=== PATIENT | female | born 1935 | race Caucasian/White ===

== ENCOUNTER 2016-09-15 05:52 | Inpatient (IN) | payer MEDICARE, OTHER ==
[2016-09-15 06:26] LABS: Basophils # (A) 0.1 k/uL (0-0.2); Basophils % (A) 1 %; CH 27.1; CHCM 32.6; Eosinophils # (A) 0.8 k/uL (0-0.7); Eosinophils % (A) 9 %; HCT 33.8 % (34.0-46.0); HDW 2.94; Luc # (Auto) 0.23; Luc % (Auto) 3; Lymphocytes # (A) 1.8 k/uL (1.0-4.8); Lymphocytes % (A) 20 %; MCHC 32.5 g/dL (31.0-37.0); MCV 83.3 fL (80.0-100.0); Mean Platelet Volume 7.3; Monocytes # (A) 0.5 k/uL (0-1.0); Monocytes % (A) 5 %; Neutrophils # (A) 5.4 k/uL (1.3-7.7); Neutrophils % (A) 62 %; RBC 4.06 m/uL (3.80-5.40); RDW 13.6 % (11.5-15.5); WBC 8.7 k/uL (3.8-10.6); WBC (Perox) 8.22
--- NOTE | 2016-09-15 06:28 | ED ---
SOB HPI - General Chief Complaint: Shortness of Breath Stated Complaint: CHELSEA Time Seen by Provider: 09/15/16 06:02 Source: EMS Mode of arrival: EMS Limitations: no limitations - History of Present Illness Initial Comments: This patient is an 81-year-old woman presenting with shortness of breath that is been getting worse for 3-4 days. The patient states she has history of COPD. She states that she had been out of her respiratory medications until yesterday when they arrived. She states that this feels similar to previous COPD episodes. She also has cough with occasional clear sputum. She denies fever or chills. She denies chest pain. MD Complaint: shortness of breath Onset/Timin -: days(s) Severity: moderate Consistency: constant Improves With: nothing Worsens With: lying flat Known History Of: COPD Treatments Prior to Arrival: oxygen - Related Data Home Medications Medication Instructions Recorded Confirmed Aspirin 81 mg PO DAILY 08/06/13 09/15/16 Furosemide [Lasix] 40 mg PO DAILY 08/06/13 09/15/16 Levalbuterol Hfa Inhaler [Xopenex 2 puff INHALATION QID PRN 08/06/13 09/15/16 Hfa Inhaler] Lisinopril [Prinivil] 10 mg PO DAILY 08/06/13 09/15/16 Nitroglycerin Sl Tabs [Nitrostat] 0.4 mg SL DIRECTED PRN 08/06/13 09/15/16 Omeprazole [PriLOSEC] 20 mg PO DAILY 08/06/13 09/15/16 Albuterol Nebulized [Ventolin 2.5 mg INHALATION RT-QID 09/15/16 09/15/16 Nebulized] Atorvastatin [Lipitor] 20 mg PO DAILY 09/15/16 09/15/16 Calcium Carbonate [Calcium] 600 mg PO DAILY 09/15/16 09/15/16 Allergies Allergy/AdvReac Type Severity Reaction Status Date / Time codeine Allergy Unknown Verified 09/15/16 07:38 Review of Systems ROS Statement: Those systems with pertinent positive or pertinent negative responses have been documented in the HPI. ROS Other: All systems not noted in ROS Statement are negative. Constitutional: Denies: fever, chills, weakness Respiratory: Reports: cough, dyspnea, wheezes. Denies: hemoptysis Cardiovascular: Reports: orthopnea. Denies: chest pain, palpitations, edema Gastrointestinal: Denies: abdominal pain, vomiting, diarrhea Genitourinary: Denies: dysuria, hematuria Musculoskeletal: Denies: back pain Skin: Denies: rash Neurological: Denies: headache, weakness, numbness Past Medical History Past Medical History: Cancer, Heart Failure, COPD, GERD/Reflux, Hypertension, Osteoarthritis (OA) Additional Past Medical History / Comment(s): SPINAL STENOSIS,OSTEOPOROSIS, UTI' S, GOUT History of Any Multi-Drug Resistant Organisms: None Reported Past Surgical History: Appendectomy, Cholecystectomy, Coronary Bypass/CABG, Heart Catheterization With Stent Additional Past Surgical History / Comment(s): 03/19/03 STENTS TO MID CIRC, DISTALL TO 1ST, PROX CIRC,, PROX RCA, DISTAL RCA. Past Anesthesia/Blood Transfusion Reactions: No Reported Reaction Date of Last Stent Placement:: 2004 Past Psychological History: Anxiety, Depression Smoking Status: Former smoker Past Alcohol Use History: None Reported Past Drug Use History: None Reported General Exam Limitations: no limitations General appearance: alert, in distress, obese Head exam: Present: atraumatic, normocephalic Eye exam: Present: normal appearance Neck exam: Present: normal inspection Respiratory exam: Present: respiratory distress, rales ({). Absent: wheezes, rhonchi, chest wall tenderness, decreased breath sounds, prolonged expiratory Cardiovascular Exam: Present: regular rate, normal rhythm, normal heart sounds. Absent: systolic murmur, diastolic murmur, rubs, gallop GI/Abdominal exam: Present: soft. Absent: distended, tenderness, guarding, rebound, mass Extremities exam: Present: normal inspection, normal capillary refill, pedal edema (Left leg). Absent: calf tenderness Back exam: Present: normal inspection. Absent: CVA tenderness (R), CVA tenderness (L) Neurological exam: Present: alert Skin exam: Present: warm, dry, intact, normal color. Absent: rash Course Vital Signs 09/15/16 09/15/16 09/15/16 05:53 06:55 07:14 Temperature 100.1 F H 98.9 F Pulse Rate 100 77 78 Respiratory 28 H 18 20 Rate Blood Pressure 172/74 109/53 109/53 O2 Sat by Pulse 94 L 100 93 L Oximetry Medical Decision Making - Lab Data Result diagrams: 09/15/16 06:12 09/15/16 06:12 Lab Results 09/15/16 09/15/16 09/15/16 Range/Units 06:12 06:12 06:12 WBC 8.7 (3.8-10.6) k/uL RBC 4.06 (3.80-5.40) m/uL Hgb 11.0 L (11.4-16.0) gm/dL Hct 33.8 L (34.0-46.0) % MCV 83.3 (80.0-100.0) fL MCH 27.0 (25.0-35.0) pg MCHC 32.5 (31.0-37.0) g/dL RDW 13.6 (11.5-15.5) % Plt Count 341 (150-450) k/uL Neutrophils % 62 % Lymphocytes % 20 % Monocytes % 5 % Eosinophils % 9 % Basophils % 1 % Neutrophils # 5.4 (1.3-7.7) k/uL Lymphocytes # 1.8 (1.0-4.8) k/uL Monocytes # 0.5 (0-1.0) k/uL Eosinophils # 0.8 H (0-0.7) k/uL Basophils # 0.1 (0-0.2) k/uL PT (9.0-12.0) sec INR (<1.2) APTT (22.0-30.0) sec D-Dimer (<0.60) mg/L FEU Sodium 137 (137-145) mmol/L Potassium 3.3 L (3.5-5.1) mmol/L Chloride 99 (98-107) mmol/L Carbon Dioxide 28 (22-30) mmol/L Anion Gap 10 mmol/L BUN 19 H (7-17) mg/dL Creatinine 0.98 (0.52-1.04) mg/dL Est GFR (MDRD) Af Amer >60 (>60 ml/min/1.73 sqM) Est GFR (MDRD) Non-Af 54 (>60 ml/min/1.73 sqM) Glucose 126 H (74-99) mg/dL Calcium 9.1 (8.4-10.2) mg/dL Total Bilirubin 0.5 (0.2-1.3) mg/dL AST 27 (14-36) U/L ALT 35 (9-52) U/L Alkaline Phosphatase 44 (38-126) U/L Total Creatine Kinase 39 (30-135) U/L CK-MB (CK-2) 0.9 (0.0-2.4) ng/mL CK-MB (CK-2) Rel Index 2.3 Troponin I <0.012 (0.000-0.034) ng/mL NT-Pro-B Natriuret Pep pg/mL Total Protein 6.0 L (6.3-8.2) g/dL Albumin 3.3 L (3.5-5.0) g/dL 09/15/16 09/15/16 Range/Units 06:12 06:12 WBC (3.8-10.6) k/uL RBC (3.80-5.40) m/uL Hgb (11.4-16.0) gm/dL Hct (34.0-46.0) % MCV (80.0-100.0) fL MCH (25.0-35.0) pg MCHC (31.0-37.0) g/dL RDW (11.5-15.5) % Plt Count (150-450) k/uL Neutrophils % % Lymphocytes % % Monocytes % % Eosinophils % % Basophils % % Neutrophils # (1.3-7.7) k/uL Lymphocytes # (1.0-4.8) k/uL Monocytes # (0-1.0) k/uL Eosinophils # (0-0.7) k/uL Basophils # (0-0.2) k/uL PT 11.3 (9.0-12.0) sec INR 1.1 (<1.2) APTT 22.1 (22.0-30.0) sec D-Dimer 0.93 H (<0.60) mg/L FEU Sodium (137-145) mmol/L Potassium (3.5-5.1) mmol/L Chloride (98-107) mmol/L Carbon Dioxide (22-30) mmol/L Anion Gap mmol/L BUN (7-17) mg/dL Creatinine (0.52-1.04) mg/dL Est GFR (MDRD) Af Amer (>60 ml/min/1.73 sqM) Est GFR (MDRD) Non-Af (>60 ml/min/1.73 sqM) Glucose (74-99) mg/dL Calcium (8.4-10.2) mg/dL Total Bilirubin (0.2-1.3) mg/dL AST (14-36) U/L ALT (9-52) U/L Alkaline Phosphatase (38-126) U/L Total Creatine Kinase (30-135) U/L CK-MB (CK-2) (0.0-2.4) ng/mL CK-MB (CK-2) Rel Index Troponin I (0.000-0.034) ng/mL NT-Pro-B Natriuret Pep 578 pg/mL Total Protein (6.3-8.2) g/dL Albumin (3.5-5.0) g/dL - EKG Data -: EKG Interpreted by Me EKG shows normal: sinus rhythm, axis (Normal), intervals (Normal), QRS complexes (Low voltage QRS complex), ST-T waves (Normal) Rate: normal (Rate approximately 80 bpm) Disposition Clinical Impression: Pneumonia Disposition: ADMITTED IP TO THIS HOSP Condition: Poor Referrals: Cele Winn MD [Primary Care Provider] - 1-2 days
[2016-09-15 06:36] LABS: ALT 35 U/L (9-52); AST 27 U/L (14-36); Alkaline Phosphatase 44 U/L (38-126); Anion Gap 10 mmol/L; Blood Urea Nitrogen 19 mg/dL (7-17); Calcium 9.1 mg/dL (8.4-10.2); Carbon Dioxide 28 mmol/L (22-30); Chloride 99 mmol/L (98-107); Glucose 126 mg/dL (74-99); Non-African American GFR(MDRD) 54 (>60 ml/min/1.73 sqM); Potassium 3.3 mmol/L (3.5-5.1); Sodium 137 mmol/L (137-145); Total Bilirubin 0.5 mg/dL (0.2-1.3)
[2016-09-15 06:44] LABS: INR 1.1 (<1.2); Partial Thromboplastin Time 22.1 sec (22.0-30.0); Prothrombin Time 11.3 sec (9.0-12.0)
[2016-09-15 06:55] LABS: Creatine Kinase 39 U/L (30-135)
--- NOTE | 2016-09-15 07:02 | XR ---
EXAM: XR Chest, 1 View CLINICAL HISTORY: Reason: dyspnea TECHNIQUE: Frontal view of the chest. COMPARISON: None. FINDINGS: Lungs: Opacification of the left lower lung zone is seen raising concern for consolidation. Findings suggestive of COPD. Mild chronic interstitial lung changes likely present. Pleural space: Unremarkable. No pneumothorax. Heart: Patient status post CABG with associated post surgical changes including sternotomy wires seen. The heart appears mildly enlarged. Mediastinum: Mild atherosclerotic vascular calcification likely present in the aortic arch. Bones/joints: Osteopenia suggested. IMPRESSION: 1. Opacification of the left lower lung zone raising concern for left lower lobe consolidation. 2. Findings suggestive of COPD with mild chronic interstitial lung changes. 3. Status post CABG with associated postoperative changes. The heart is mildly enlarged.
[2016-09-15 07:08] LABS: Creatine Kinase MB 0.9 ng/mL (0.0-2.4); Troponin I <0.012 ng/mL (0.000-0.034)
[2016-09-15] MEDS ORDERED: RX INFO: IV CONTRAST WAS GIVEN 1 EACH MISC MISCELLANE PRN (07:21)
[2016-09-15] MEDS ORDERED: PNEUMONIA PROTOCOL UTILIZED 1 EACH MISC PO PRN (08:06)
[2016-09-15] MEDS ORDERED: LEVOFLOXACIN 750MG-D5W PMX 750 MG in DEXTROSE/WATER 1 150ML.BAG IVPB STA (08:06)
--- NOTE | 2016-09-15 08:53 | CT ---
EXAMINATION TYPE: CT chest angio for PE DATE OF EXAM: 09/15/2016 COMPARISON: NONE HISTORY: SOB CT DLP: 528 mGycm Automated exposure control for dose reduction was used. CONTRAST: CT Chest for pulmonary embolism performed with with IV Contrast, patient injected with 80 mL of Visip aque 320. FINDINGS: There is patchy consolidation present bilaterally, worse in the left lower lobe. There is a 1.7 cm masslike area of consolidation along the left lateral chest wall. A second 8 mm spiculated de nsity is noted along the right chest wall. There is some inflammatory change in the right lower lobe. The major bronchi are patent. There is been a midline sternotomy. There is no significant axillary, internal mammary, mediastinal or hilar adenopathy. There is no evidence of pulmonary embolus. The aorta is normal in caliber without evidence of dissection. The heart is mildly prominent. There i s no pleural or pericardial fluid. There is a small hiatal hernia present There is a 2.1 cm exophytic lesion arising from the upper pole of the left kidney. This may represent a cyst. This should BE confirmed with ultrasound. There is hypertrophic spondylosis and degenerative disc disease within the dorsal spine. IMPRESSION: 1. THIS EXAMINATION IS NEGATIVE FOR PULMONARY EMBOLUS. 2. BILATERAL AREAS OF CONSOLIDATION, WORSE IN THE LEFT LOWER LOBE AND LINGULA. 3. MASSLIKE CONSOLIDATION BILATERALLY. FOLLOW-UP TO RESOLUTION WOULD BE RECOMMENDED TO EXCLUDE UNDERL MARCE NEOPLASM. 4. INCOMPLETELY VISUALIZED EXOPHYTIC LESION ARISING FROM THE LEFT KIDNEY. ULTRASOUND OF THE KIDNEYS W OULD BE SUGGESTED. 5. DEGENERATIVE CHANGE WITHIN THE SPINE. 6. SMALL HIATAL HERNIA. 7. MILD CARDIOMEGALY.
[2016-09-15] MEDS: HEPARIN SODIUM,PORCINE 5,000 UNIT/ML 1 ML VIAL SQ SCH ×2 (11:29→20:58)
[2016-09-15] MEDS ORDERED: NITROGLYCERIN SL TABS 0.4 MG TAB SUBLINGUAL PRN (11:55)
[2016-09-15] MEDS ORDERED: ALBUTEROL NEBULIZED 2.5 MG/3 ML INHALATION SCH (12:00)
[2016-09-15] MEDS ORDERED: IPRATROPIUM 0.5 MG/2.5 ML NEBU INHALATION SCH (12:00)
[2016-09-15] MEDS: IPRATROPIUM-ALBUTEROL 3 ML NEB INHALATION SCH ×4 (14:16→23:19)
--- NOTE | 2016-09-15 14:31 | US ---
EXAMINATION TYPE: US kidneys/renal and bladder DATE OF EXAM: 09/15/2016 COMPARISON: NONE CLINICAL HISTORY: renal mass. Renal lesion seen on CT EXAM MEASUREMENTS: Right Kidney: 11.6 x 4.3 x 3.8cm Left Kidney: 10.5 x 4.2 x 3.8cm Right Kidney: cystic area lower pole 1.0 x 0.8 x 0.9cm Left Kidney: hypoechoic area upper pole = 1.7 x 1.8 x 1.7cm Bladder: appears wnl Bilateral Jets seen: yes IMPRESSION: Indeterminate hypoechoic areas within both kidneys. Lesion on the left appears solid in appearance re commend follow-up CT scan.
--- NOTE | 2016-09-15 16:13 | P.HPIM ---
History of Present Illness This patient is an 81-year-old woman presenting with shortness of breath that is been getting worse for 3-4 days, and did have fever cough with sputum production generalized weakness and tiredness and patient is found to have fever and bilateral pneumonia. Patient is admitted and patient antibiotics are being changed to ceftriaxone and azithromycin.. Denied any chest pain did have a syncopal episode, secondary to low blood pressures secondary to pneumonia and sepsis. Although her blood pressure apparently was high during her EMS transport. Review of Systems REVIEW OF SYSTEMS: CONSTITUTIONAL: No fever, no malaise, no fatigue. HEENT: No recent visual problems or hearing problems. Denied any sore throat. CARDIOVASCULAR: No chest pain, orthopnea, PND, no palpitations. PULMONARY: As mentioned in HPI GASTROINTESTINAL: No diarrhea, no nausea, no vomiting, no abdominal pain. Normoactive bowel sounds. NEUROLOGICAL: No headaches, no weakness, no numbness. HEMATOLOGICAL: Denies any bleeding or petechiae. GENITOURINARY: Denies any burning micturition, frequency, or urgency. MUSCULOSKELETAL/RHEUMATOLOGICAL: Denies any joint pain, swelling, or any muscle pain. ENDOCRINE: Denies any polyuria or polydipsia. The rest of the 14-point review of systems is negative. Past Medical History Past Medical History: Coronary Artery Disease (CAD), Cancer, Heart Failure, COPD , GERD/Reflux, Hyperlipidemia, Hypertension, Myocardial Infarction (VT), Osteoarthritis (OA) Additional Past Medical History / Comment(s): PULMONARY HTN, BRONCHITIS, SPINAL STENOSIS,OSTEOPOROSIS, UTI'S, GOUT BILATERAL FEET, PT THINKS SHE HAS A FUNGAL INFECTION TOES L FOOT, R EYE CATARACT, SHINGELLES IN 2013. Last Myocardial Infarction Date:: 2003 History of Any Multi-Drug Resistant Organisms: None Reported Past Surgical History: Appendectomy, Cholecystectomy, Coronary Bypass/CABG, Heart Catheterization With Stent, Tubal Ligation Additional Past Surgical History / Comment(s): PCI WITH STENTS (?TOTAL OF 4), 2003 CABG, SKIN CANCER REMOVALS, D&C, COLONOSCOPIES WITH BENIGN POLYPECTOMIES. Past Anesthesia/Blood Transfusion Reactions: No Reported Reaction Date of Last Stent Placement:: 2003 Smoking Status: Former smoker - Past Family History Mother Family Medical History: Cancer Additional Family Medical History / Comment(s): MOTHER HAD KIDNEY CANCER. SHE OF A RUPTURED BRAIN ANEURYSM AT THE AGE OF 71 YRS. Father History Unknown: Yes Brother(s) Family Medical History: Cancer Additional Family Medical History / Comment(s): THROAT CANCER. Medications and Allergies Home Medications Medication Instructions Recorded Confirmed Type Aspirin 81 mg PO DAILY 08/06/13 09/15/16 History Furosemide [Lasix] 40 mg PO DAILY 08/06/13 09/15/16 History Levalbuterol Hfa Inhaler [Xopenex 2 puff INHALATION QID PRN 08/06/13 09/15/16 History Hfa Inhaler] Lisinopril [Prinivil] 10 mg PO DAILY 08/06/13 09/15/16 History Nitroglycerin Sl Tabs [Nitrostat] 0.4 mg SL DIRECTED PRN 08/06/13 09/15/16 History Omeprazole [PriLOSEC] 20 mg PO DAILY 08/06/13 09/15/16 History Albuterol Nebulized [Ventolin 2.5 mg INHALATION RT-QID 09/15/16 09/15/16 History Nebulized] Atorvastatin [Lipitor] 20 mg PO DAILY 09/15/16 09/15/16 History Calcium Carbonate [Calcium] 600 mg PO DAILY 09/15/16 09/15/16 History Allergies Allergy/AdvReac Type Severity Reaction Status Date / Time codeine Allergy Unknown Verified 09/15/16 07:38 Physical Exam Vitals: Vital Signs Temp Pulse Pulse Resp BP BP Pulse Ox 09/15/16 16:00 78 09/15/16 15:51 74 09/15/16 15:14 16 09/15/16 15:00 97.5 F L 73 16 116/60 96 09/15/16 10:42 97.3 F L 55 L 16 132/58 99 09/15/16 09:49 98.4 F 72 18 125/71 99 09/15/16 08:22 82 18 137/62 97 09/15/16 07:14 98.9 F 78 20 109/53 93 L 09/15/16 06:55 77 18 109/53 100 09/15/16 05:53 100.1 F H 100 28 H 172/74 94 L Intake and Output 09/15/16 09/15/16 09/15/16 06:59 14:59 22:59 Other: # Voids 1 Weight 72.575 kg PHYSICAL EXAMINATION: GENERAL: The patient is alert and oriented x3, not in any acute distress. Well developed, well nourished. HEENT: Pupils are round and equally reacting to light. EOMI. No scleral icterus. No conjunctival pallor. Normocephalic, atraumatic. No pharyngeal erythema. No thyromegaly. CARDIOVASCULAR: S1 and S2 present. No murmurs, rubs, or gallops. PULMONARY: Chest is clear to auscultation, no wheezing or crackles. ABDOMEN: Soft, nontender, nondistended, normoactive bowel sounds. No palpable organomegaly. MUSCULOSKELETAL: No joint swelling or deformity. EXTREMITIES: No cyanosis, clubbing, or pedal edema. NEUROLOGICAL: Gross neurological examination did not reveal any focal deficits. SKIN: No rashes. Results CBC & Chem 7: 09/15/16 06:12 09/15/16 06:12 Labs: Abnormal Lab Results - Last 24 Hours (Table) 09/15/16 09/15/16 09/15/16 Range/Units 06:12 06:12 06:12 Hgb 11.0 L (11.4-16.0) gm/dL Hct 33.8 L (34.0-46.0) % Eosinophils # 0.8 H (0-0.7) k/uL D-Dimer 0.93 H (<0.60) mg/L FEU Potassium 3.3 L (3.5-5.1) mmol/L BUN 19 H (7-17) mg/dL Glucose 126 H (74-99) mg/dL Total Protein 6.0 L (6.3-8.2) g/dL Albumin 3.3 L (3.5-5.0) g/dL Thrombosis Risk Factor Assmnt - Choose All That Apply Any of the Below Risk Factors Present?: Yes Each Factor Represents 1 point: Abnormal pulmonary function (COPD), Obesity ( BMI >25), Serious lung disease incl. pneumonia (< 1month) Other Risk Factors: Yes Each Risk Factor Represents 2 Points: Malignancy Each Risk Factor Represents 3 Points: Age 75 years or older Other congenital or acquired thrombophilia - If yes, enter type in comment: No Thrombosis Risk Factor Assessment Total Risk Factor Score: 8 Thrombosis Risk Factor Assessment Level: High Risk Assessment and Plan Plan: #1 bilateral pneumonia: Most probably pneumococcal pneumonia. Patient will be started on ceftriaxone and azithromycin. #2 gastroesophageal reflux disease #3 hypertension #4 coronary artery disease #5 osteoarthritis. 6 mild senile dementia. #7 hypokalemia potassium will be supplemented. For above-mentioned chronic medical problems I'll continue her home medications.
[2016-09-15] MEDS: SODIUM CHLORIDE 0.9% 1,000 ML IV SCH (16:46)
[2016-09-16] MEDS: IPRATROPIUM-ALBUTEROL 3 ML NEB INHALATION SCH ×6 (03:48→23:52)
[2016-09-16] MEDS: SODIUM CHLORIDE 0.9% 1,000 ML IV SCH ×2 (05:28→20:14)
[2016-09-16] MEDS: HEPARIN SODIUM,PORCINE 5,000 UNIT/ML 1 ML VIAL SQ SCH ×2 (09:00→20:14)
[2016-09-16] MEDS ORDERED: LEVOFLOXACIN 750 MG TAB PO SCH (09:00)
[2016-09-16] MEDS: CALCIUM CARB-VIT D 500MG-200UN 1 EACH TAB PO SCH (09:00)
[2016-09-16] MEDS: ATORVASTATIN 20 MG TAB PO SCH (09:00)
[2016-09-16] MEDS: AZITHROMYCIN 500 MG TAB PO SCH (09:00)
[2016-09-16] MEDS: PANTOPRAZOLE 40 MG TABLET PO SCH (09:00)
[2016-09-16] MEDS: ASPIRIN 81 MG CHEW PO SCH (09:00)
[2016-09-16] MEDS: ACETAMINOPHEN TAB 325 MG TAB PO PRN ×2 (09:12→20:14)
--- NOTE | 2016-09-16 09:22 | P.CNPUL ---
History of Present Illness Consult date: 09/15/16 Reason for consult: dyspnea, pneumonia History of present illness: 1-year-old female patient, presented with progressive increase in shortness of breath over the past 3 days. The patient was having low-grade fever, chills, chest congestion, and she was feeling extremely tired and weak to the point where she collapsed and she had an episode of fall while trying to get up. For that reason she presented to the hospital and further investigation showed that the patient is an extensive right lung pneumonia. A CAT scan of the chest was done and showed no evidence of any pulmonary embolism. There was bilateral areas of consolidation worse in the left lower lobe and lingula. A masslike consolidation present in the left lower lobe. This is typical of an underlying pneumonia. The patient remained hemodynamically stable. No change in mental status. No hemoptysis. No pleurisy. She has been started on a combination of Rocephin and Zithromax. A left kidney lesion was also seen and a ultrasound of the kidneys was done and it showed indeterminate hypoechoic areas within both kidneys and the left knee lesion seemed to be solid in appearance and further CAT scan at the kidneys was recommended. Review of Systems All systems: negative Constitutional: Denies chills, Denies fever Eyes: denies blurred vision, denies pain Ears, nose, mouth and throat: Denies headache, Denies sore throat Cardiovascular: Denies chest pain, Denies shortness of breath Respiratory: Reports cough, Reports cough with sputum, Reports dyspnea, Reports excessive sputum Gastrointestinal: Denies abdominal pain, Denies diarrhea, Denies nausea, Denies vomiting Genitourinary: Denies dysuria, Denies hematuria Musculoskeletal: Denies myalgias Integumentary: Denies pruritus, Denies rash Neurological: Denies numbness, Denies weakness Psychiatric: Denies anxiety, Denies depression Endocrine: Denies fatigue, Denies weight change Past Medical History Past Medical History: Coronary Artery Disease (CAD), Cancer, COPD, GERD/Reflux, Hyperlipidemia, Hypertension, Myocardial Infarction (CT), Osteoarthritis (OA) Additional Past Medical History / Comment(s): COPD with a baseline FEV1 of 66% of predicted, coronary artery disease with previous insertion of a coronary stent, hypertension, hyperlipidemia, previous history of urinary tract infections including infection with enterococcus, osteoporosis, osteoarthritis, spinal stenosis, gout, history of onychomycosis, cataracts, shingles in 2014, skin cancer Last Myocardial Infarction Date:: 2003 History of Any Multi-Drug Resistant Organisms: None Reported Past Surgical History: Appendectomy, Cholecystectomy, Coronary Bypass/CABG, Heart Catheterization With Stent, Tubal Ligation Additional Past Surgical History / Comment(s): PCI WITH STENTS (?TOTAL OF 4), 2003 CABG, SKIN CANCER REMOVALS, D&C, COLONOSCOPIES WITH BENIGN POLYPECTOMIES. Past Anesthesia/Blood Transfusion Reactions: No Reported Reaction Date of Last Stent Placement:: 2003 Smoking Status: Former smoker - Past Family History Mother Family Medical History: Cancer Additional Family Medical History / Comment(s): MOTHER HAD KIDNEY CANCER. SHE OF A RUPTURED BRAIN ANEURYSM AT THE AGE OF 71 YRS. Father History Unknown: Yes Brother(s) Family Medical History: Cancer Additional Family Medical History / Comment(s): THROAT CANCER. Medications and Allergies Home Medications Medication Instructions Recorded Confirmed Type Aspirin 81 mg PO DAILY 08/06/13 09/15/16 History Furosemide [Lasix] 40 mg PO DAILY 08/06/13 09/15/16 History Levalbuterol Hfa Inhaler [Xopenex 2 puff INHALATION QID PRN 08/06/13 09/15/16 History Hfa Inhaler] Lisinopril [Prinivil] 10 mg PO DAILY 08/06/13 09/15/16 History Nitroglycerin Sl Tabs [Nitrostat] 0.4 mg SL DIRECTED PRN 08/06/13 09/15/16 History Omeprazole [PriLOSEC] 20 mg PO DAILY 08/06/13 09/15/16 History Albuterol Nebulized [Ventolin 2.5 mg INHALATION RT-QID 09/15/16 09/15/16 History Nebulized] Atorvastatin [Lipitor] 20 mg PO DAILY 09/15/16 09/15/16 History Calcium Carbonate [Calcium] 600 mg PO DAILY 09/15/16 09/15/16 History Allergies Allergy/AdvReac Type Severity Reaction Status Date / Time codeine Allergy Unknown Verified 09/15/16 07:38 Physical Exam Vitals: Vital Signs Temp Pulse Pulse Resp BP BP Pulse Ox 09/16/16 07:26 80 09/16/16 07:15 76 92 L 09/16/16 07:00 99.2 F 78 20 116/53 92 L 09/15/16 23:30 80 09/15/16 23:21 80 09/15/16 22:57 99.5 F 86 18 110/59 96 09/15/16 21:17 80 09/15/16 21:07 81 09/15/16 16:00 78 09/15/16 15:51 74 09/15/16 15:14 16 09/15/16 15:00 97.5 F L 73 16 116/60 96 09/15/16 10:42 97.3 F L 55 L 16 132/58 99 09/15/16 09:49 98.4 F 72 18 125/71 99 Intake and Output 09/15/16 09/16/16 09/16/16 22:59 06:59 14:59 Other: # Voids 1 2 # Bowel Movements 0 0 Head exam was generally normal. There was no scleral icterus or corneal arcus. Mucous membranes were moist.Neck was supple and without jugular venous distension, thyromegaly, or carotid bruits. Carotids were easily palpable bilaterally. There was no adenopathy. Lung sounds are diminished bilaterally and crackles aren't appreciated in the left lung base.Cardiac exam revealed the PMI to be normally situated and sized. The rhythm was regular and no extrasystoles were noted during several minutes of auscultation. The first and second heart sounds were normal and physiologic splitting of the second heart sound was noted. There were no murmurs, rubs, clicks, or gallops.Abdominal exam revealed normal bowel sounds. The abdomen was soft, non-tender, and without masses, organomegaly, or appreciable enlargement of the abdominal aorta.Examination of the extremities revealed easily palpable radial, femoral and pedal pulses. There was no cyanosis, clubbing or edema. Results - Laboratory Findings CBC and BMP: 09/15/16 06:12 09/15/16 06:12 PT/INR, D-dimer PT 11.3 sec (9.0-12.0) 09/15/16 06:12 INR 1.1 (<1.2) 09/15/16 06:12 D-Dimer 0.93 mg/L FEU (<0.60) H 09/15/16 06:12 Abnormal lab findings: Abnormal Labs 09/15/16 09/15/16 09/15/16 06:12 06:12 06:12 Hgb 11.0 L Hct 33.8 L Eosinophils # 0.8 H D-Dimer 0.93 H Potassium 3.3 L BUN 19 H Glucose 126 H Total Protein 6.0 L Albumin 3.3 L - Diagnostic Findings Chest x-ray: image reviewed CT scan - chest: image reviewed Assessment and Plan Plan: Assessment 1 multilobar pneumonia with masslike consolidation involving the left lung/ lingular segment of the left lower lobe 2 acute hypoxic respiratory failure secondary to above 3 acute dyspnea secondary to above 4 COPD moderate to severe with a baseline FEV1 of 66% of predicted 5 coronary artery disease with previous coronary intervention and stenting and previous bypass surgery 6 hypertension 7 hyperlipidemia 8 history of shingles 9 history of skin cancer 10 history of anxiety/depression 11 osteoporosis/osteoarthritis 12 gout 13 left indeterminate hypoechogenic kidney lesion that needs further investigation Plan Was seated with Rocephin and Zithromax as broad-spectrum antibiotic coverage. Sputum Gram stain and culture. Blood culture. DuoNeb nebulized treatments around the clock 4 times a day. No signs of any septicemia this point. Continue the treatment a repeat chest x-ray with next 24 hours. We'll need also a CAT scan of the kidneys to assess the left kidney lesion. We'll continue to follow.
[2016-09-16] MEDS ORDERED: IV VANCOMYCIN PER PHARMACY 1 EACH MISC MISCELLANE PRN (10:01)
[2016-09-16] MEDS: VANCOMYCIN 1,250 MG in SODIUM CHLORIDE 0.9% 250 ML IVPB SCH (11:03)
[2016-09-16] MEDS ORDERED: LORazepam 2 MG/ML SYRINGE IV STA (11:19)
[2016-09-16 11:53] LABS: Anion Gap 7 mmol/L; Blood Urea Nitrogen 13 mg/dL (7-17); Calcium 8.3 mg/dL (8.4-10.2); Carbon Dioxide 26 mmol/L (22-30); Chloride 103 mmol/L (98-107); Glucose 184 mg/dL (74-99); Non-African American GFR(MDRD) 60 (>60 ml/min/1.73 sqM); Potassium 3.7 mmol/L (3.5-5.1); Sodium 136 mmol/L (137-145)
--- NOTE | 2016-09-16 18:05 | P.PN ---
Subjective 81-year-old female patient, presented with progressive increase in shortness of breath over the past 3 days. The patient was having low-grade fever, chills, chest congestion, and she was feeling extremely tired and weak to the point where she collapsed and she had an episode of fall while trying to get up. For that reason she presented to the hospital and further investigation showed that the patient is an extensive right lung pneumonia. A CAT scan of the chest was done and showed no evidence of any pulmonary embolism. There was bilateral areas of consolidation worse in the left lower lobe and lingula. A masslike consolidation present in the left lower lobe. This is typical of an underlying pneumonia. The patient remained hemodynamically stable. No change in mental status. No hemoptysis. No pleurisy. She has been started on a combination of Rocephin and Zithromax. A left kidney lesion was also seen and a ultrasound of the kidneys was done and it showed indeterminate hypoechoic areas within both kidneys and the left knee lesion seemed to be solid in appearance and further CAT scan at the kidneys was recommended. The patient is seen again today 09/16/2016 in follow-up on the regular medical floor. She was seen and evaluated yesterday by Dr. Winn though his dictation was today. A masslike consolidation was present in the left lower lobe suspicious for underlying pneumonia. The CAT scan also revealed left kidney lesion that was solid in appearance. He ordered a MRI of the kidney today. Presently, the patient is resting quite comfortably in bed. She denies any worsening shortness of breath, cough or congestion. Preliminary blood culture reveals gram-positive cocci in clusters. She has been initiated on vancomycin and continues on ceftriaxone and azithromycin. She denies any worsening shortness of breath cough or congestion. She is maintaining good O2 saturations in the high 90s on 2 L/m per nasal cannula. She's been afebrile. Hemodynamically stable. Objective - Vital Signs Vital signs: Vital Signs Temp 97.9 F 09/16/16 15:00 Pulse 84 09/16/16 15:52 Resp 20 09/16/16 16:00 BP 107/56 09/16/16 15:00 Pulse Ox 98 09/16/16 15:00 Intake & Output 09/15/16 09/16/16 09/16/16 18:59 06:59 18:59 Weight 72.575 kg Other: # Voids 1 2 3 # Bowel Movements 0 - Exam Head exam was generally normal. There was no scleral icterus or corneal arcus. Mucous membranes were moist.Neck was supple and without jugular venous distension, thyromegaly, or carotid bruits. Carotids were easily palpable bilaterally. There was no adenopathy. Lung sounds are diminished bilaterally and crackles aren't appreciated in the left lung base.Cardiac exam revealed the PMI to be normally situated and sized. The rhythm was regular and no extrasystoles were noted during several minutes of auscultation. The first and second heart sounds were normal and physiologic splitting of the second heart sound was noted. There were no murmurs, rubs, clicks, or gallops.Abdominal exam revealed normal bowel sounds. The abdomen was soft, non-tender, and without masses, organomegaly, or appreciable enlargement of the abdominal aorta.Examination of the extremities revealed easily palpable radial, femoral and pedal pulses. There was no cyanosis, clubbing or edema. - Labs CBC & Chem 7: 09/15/16 06:12 09/16/16 10:26 Labs: Abnormal Lab Results - Last 24 Hours (Table) 09/16/16 Range/Units 10:26 Sodium 136 L (137-145) mmol/L Glucose 184 H (74-99) mg/dL Calcium 8.3 L (8.4-10.2) mg/dL Microbiology - Last 24 Hours (Table) 09/15/16 06:15 Blood Culture Gram Stain - Preliminary Blood 09/15/16 06:15 Blood Culture - Final Blood Assessment and Plan Plan: Assessment 1 multilobar pneumonia with masslike consolidation involving the left lung/ lingular segment of the left lower lobe 2 acute hypoxic respiratory failure secondary to above 3 acute dyspnea secondary to above 4 COPD moderate to severe with a baseline FEV1 of 66% of predicted 5 coronary artery disease with previous coronary intervention and stenting and previous bypass surgery 6 hypertension 7 hyperlipidemia 8 history of shingles 9 history of skin cancer 10 history of anxiety/depression 11 osteoporosis/osteoarthritis 12 gout 13 left indeterminate hypoechogenic kidney lesion that needs further investigation Plan: The patient was seen and evaluated by Dr. Winn. He did go ahead and order an MRI of the kidneys based on the solid lesion noted on the left kidney. Blood cultures are also revealing gram-positive cocci in clusters. Vancomycin has been added to the Rocephin and Zithromax. She remains on bronchodilators. She is on heparin for DVT prophylaxis and Protonix for GI prophylaxis. We will continue to follow and make further recommendations based on her clinical status.
--- NOTE | 2016-09-16 23:34 | MR ---
EXAMINATION TYPE: MR kidney wo/w con DATE OF EXAM: 09/16/2016 COMPARISON: CT and ultrasound this week. HISTORY: kidney mass vs cyst CONTRAST: Standard multiplanar, multisequence MRI departmental protocol utilizing 15 mL intravenous MultiHance gadolinium contrast. FINDINGS: Kidneys have fairly normal size and contour. There is an 8 mm cortical cyst on the interpol ar right kidney. There is no hydronephrosis. There is some lobulation at the upper pole of the left k idney but no discrete mass is seen. There is a small amount of fluid around both kidneys. Liver shows no focal defect. There is no sign of a pancreatic mass. Bile ducts are not dilated. Splee n appears normal. I see no evidence of retroperitoneal adenopathy. There is fairly uniform cortical e nhancement of the kidneys. I see no evidence of a left renal mass. IMPRESSION: There is some lobulated cortex at the upper pole left kidney without evidence of a renal mass. Small right renal cortical cyst.
[2016-09-17] MEDS: IPRATROPIUM-ALBUTEROL 3 ML NEB INHALATION SCH ×6 (04:23→23:09)
[2016-09-17] MEDS: CALCIUM CARB-VIT D 500MG-200UN 1 EACH TAB PO SCH (07:51)
[2016-09-17] MEDS: ASPIRIN 81 MG CHEW PO SCH (07:52)
[2016-09-17] MEDS: ATORVASTATIN 20 MG TAB PO SCH (07:52)
[2016-09-17] MEDS: AZITHROMYCIN 500 MG TAB PO SCH (07:52)
[2016-09-17] MEDS: HEPARIN SODIUM,PORCINE 5,000 UNIT/ML 1 ML VIAL SQ SCH ×2 (07:52→20:49)
[2016-09-17] MEDS: PANTOPRAZOLE 40 MG TABLET PO SCH (07:52)
[2016-09-17] MEDS: SODIUM CHLORIDE 0.9% 1,000 ML IV SCH (08:00)
[2016-09-17] MEDS: VANCOMYCIN 1,250 MG in SODIUM CHLORIDE 0.9% 250 ML IVPB SCH (08:25)
[2016-09-17 09:37] LABS: Anion Gap 9 mmol/L; Blood Urea Nitrogen 11 mg/dL (7-17); Calcium 8.3 mg/dL (8.4-10.2); Carbon Dioxide 25 mmol/L (22-30); Chloride 105 mmol/L (98-107); Glucose 95 mg/dL (74-99); Non-African American GFR(MDRD) >60 (>60 ml/min/1.73 sqM); Potassium 4.4 mmol/L (3.5-5.1); Sodium 139 mmol/L (137-145)
--- NOTE | 2016-09-17 12:30 | XR ---
EXAMINATION TYPE: XR chest 1V DATE OF EXAM: 09/17/2016 COMPARISON: 09/15/2016 HISTORY: Follow-up pneumonia TECHNIQUE: Single frontal view of the chest is obtained. FINDINGS: There is persistent left lower lobe subsegmental infiltrate. Underlying COPD and chronic i nterstitial lung disease noted. Heart is prominent is postsurgical changes. Diffuse osteopenia and arthropathy of the shoulders. IMPRESSION: 1. Persistent left lower lobe infiltrate. Follow-up to resolution to exclude underlying neoplasm. 2. Subsegmental changes at the right lung base more typical of atelectasis. 3. COPD and suspected chronic interstitial lung disease
--- NOTE | 2016-09-17 13:03 | P.PN ---
Subjective 81-year-old female patient, presented with progressive increase in shortness of breath over the past 3 days. The patient was having low-grade fever, chills, chest congestion, and she was feeling extremely tired and weak to the point where she collapsed and she had an episode of fall while trying to get up. For that reason she presented to the hospital and further investigation showed that the patient is an extensive right lung pneumonia. A CAT scan of the chest was done and showed no evidence of any pulmonary embolism. There was bilateral areas of consolidation worse in the left lower lobe and lingula. A masslike consolidation present in the left lower lobe. This is typical of an underlying pneumonia. The patient remained hemodynamically stable. No change in mental status. No hemoptysis. No pleurisy. She has been started on a combination of Rocephin and Zithromax. A left kidney lesion was also seen and a ultrasound of the kidneys was done and it showed indeterminate hypoechoic areas within both kidneys and the left knee lesion seemed to be solid in appearance and further CAT scan at the kidneys was recommended. The patient is seen again today 09/16/2016 in follow-up on the regular medical floor. She was seen and evaluated yesterday by Dr. Winn though his dictation was today. A masslike consolidation was present in the left lower lobe suspicious for underlying pneumonia. The CAT scan also revealed left kidney lesion that was solid in appearance. He ordered a MRI of the kidney today. Presently, the patient is resting quite comfortably in bed. She denies any worsening shortness of breath, cough or congestion. Preliminary blood culture reveals gram-positive cocci in clusters. She has been initiated on vancomycin and continues on ceftriaxone and azithromycin. She denies any worsening shortness of breath cough or congestion. She is maintaining good O2 saturations in the high 90s on 2 L/m per nasal cannula. She's been afebrile. Hemodynamically stable. On 09/17/2016 the patient is being seen in follow-up. As mentioned earlier, the patient came in for a COPD exacerbation and left lower lobe pneumonia. She was found to be more labored breathing on today's evaluation. She was more tachypneic. Despite that she was still on 2 L of oxygen nasal cannula. An immediate chest x-ray was done that showed persistent infiltration of the left lower lobe. Segmental and subsegmental changes in the right lung base related to atelectasis. Meanwhile the patient remains on a combination of Rocephin, Zithromax and vancomycin. The preliminary blood cultures showing gram-positive cocci and we're awaiting final cultures and identifications. Meanwhile, the patient completed an MRI/of the kidneys and the lesion of concern in the upper lobe of the left kidney glove turner and former to be a cortical cyst than a renal mass. She was reassured in that regard. Nevertheless, the main concern remains her worsening shortness of breath. She is still being treated for an ongoing pneumonia. Admit recommendations to chest this patient to the intensive care for closer monitoring and possible BiPAP use if needed. Objective - Vital Signs Vital signs: Vital Signs Temp 97.4 F L 09/17/16 07:00 Pulse 86 09/17/16 12:27 Resp 20 09/17/16 12:12 BP 122/61 09/17/16 07:00 Pulse Ox 98 09/17/16 07:00 Intake & Output 09/16/16 09/17/16 09/17/16 18:59 06:59 18:59 Intake Total 400 Balance 400 Weight 72.575 kg 74.077 kg Intake: Oral 400 Other: Voiding Method Toilet # Voids 3 1 1 - Exam The patient is in [id number] degree of respiratory distress and she is a bit tachypneic. Not using his muscles of breathing. She is a bit lethargic in addition.Head exam was generally normal. There was no scleral icterus or corneal arcus. Mucous membranes were moist.Neck was supple and without jugular venous distension, thyromegaly, or carotid bruits. Carotids were easily palpable bilaterally. There was no adenopathy. Lung sounds are markedly diminished bilaterally especially left lung base along with some left basilar crackles.Cardiac exam revealed the PMI to be normally situated and sized. The rhythm was regular and no extrasystoles were noted during several minutes of auscultation. The first and second heart sounds were normal and physiologic splitting of the second heart sound was noted. There were no murmurs, rubs, clicks, or gallops.Abdominal exam revealed normal bowel sounds. The abdomen was soft, non-tender, and without masses, organomegaly, or appreciable enlargement of the abdominal aorta. Organs cannot be accurately palpated as the patient is obese.Examination of the extremities revealed easily palpable radial, femoral and pedal pulses. There was no cyanosis, clubbing or edema. - Labs CBC & Chem 7: 09/15/16 06:12 09/17/16 08:11 Labs: Abnormal Lab Results - Last 24 Hours (Table) 09/17/16 Range/Units 08:11 Calcium 8.3 L (8.4-10.2) mg/dL Microbiology - Last 24 Hours (Table) 09/15/16 06:15 Blood Culture Gram Stain - Preliminary Blood Assessment and Plan Plan: Assessment 1 multilobar pneumonia with masslike consolidation involving the left lung/ lingular segment of the left lower lobe. On today's evaluation the patient is seen to have increased shortness of breath and she is struggling with her breathing. Her breathing is labored and she is more tachypneic. Chest x-ray shows a stable left lower lobe pulmonary infiltrate. Oxygenation status is also remains stable as the patient on 2 L of oxygen nasal cannula still. There is gram-positive cocci growing in the blood. Final cultures and sensitivities are still pending. 2 acute hypoxic respiratory failure secondary to above 3 acute dyspnea secondary to above 4 COPD moderate to severe with a baseline FEV1 of 66% of predicted 5 coronary artery disease with previous coronary intervention and stenting and previous bypass surgery 6 hypertension 7 hyperlipidemia 8 history of shingles 9 history of skin cancer 10 history of anxiety/depression 11 osteoporosis/osteoarthritis 12 gout 13 left indeterminate hypoechogenic kidney lesion that was further investigated by an MRI of the kidneys that do not to be cystic than a solid mass. Plan Was seated with Rocephin and Zithromax as broad-spectrum antibiotic coverage. Continue vancomycin. Awaiting blood culture results. Transfer the patient to the intensive care unit. May need to use BiPAP on and off to support her breathing. She was reassured on the results of the MRI of the kidneys. The main concern remains her left lower lobe pneumonia. Repeat chest x-ray in the morning. Continue bronchodilators. Continue steroids. We'll continue to follow.
[2016-09-17 15:16] LABS: Glucose,Whole Blood 120 mg/dL (75-99)
[2016-09-17] MEDS ORDERED: NALOXONE 0.4 MG/ML 1 ML VIAL IV PRN (16:29)
[2016-09-17] MEDS ORDERED: FUROSEMIDE 10 MG/ML 2 ML VIAL IV ONE (16:34)
--- NOTE | 2016-09-17 19:02 | P.PN ---
Subjective Patient is a 81-year-old female admitted for multilobar pneumonia and severe sepsis secondary to that. Patient didn't have any significant clinical improvement. Obtaining an MRi of the kidney because of a masslike lesion in the left kidney Patient can use to complain of generalized fatigue and shortness of breath, denied any abdominal pain denied any nausea Objective - Vital Signs Vital signs: Vital Signs Temp 98.6 F 09/17/16 15:45 Pulse 84 09/17/16 18:45 Resp 37 H 09/17/16 18:00 BP 104/61 09/17/16 18:00 Pulse Ox 94 L 09/17/16 18:00 Intake & Output 09/16/16 09/17/16 09/17/16 18:59 06:59 18:59 Intake Total 400 60 Output Total 600 Balance 400 -540 Weight 72.575 kg 74.077 kg 77.1 kg Intake: IV 60 0.9 at KVO 60 Oral 400 Output: Urine 600 Other: Voiding Method Toilet # Voids 3 1 1 - Exam GENERAL: The patient is alert and oriented x3, not in any acute distress. Well developed, well nourished. HEENT: Pupils are round and equally reacting to light. EOMI. No scleral icterus. No conjunctival pallor. Normocephalic, atraumatic. No pharyngeal erythema. No thyromegaly. CARDIOVASCULAR: S1 and S2 present. No murmurs, rubs, or gallops. PULMONARY: Chest is clear to auscultation, no wheezing or crackles. ABDOMEN: Soft, nontender, nondistended, normoactive bowel sounds. No palpable organomegaly. MUSCULOSKELETAL: No joint swelling or deformity. EXTREMITIES: No cyanosis, clubbing, or pedal edema. NEUROLOGICAL: Gross neurological examination did not reveal any focal deficits. SKIN: No rashes. - Labs CBC & Chem 7: 09/15/16 06:12 09/17/16 08:11 Labs: Abnormal Lab Results - Last 24 Hours (Table) 09/17/16 09/17/16 Range/Units 08:11 15:13 POC Glucose (mg/dL) 120 H (75-99) mg/dL Calcium 8.3 L (8.4-10.2) mg/dL Microbiology - Last 24 Hours (Table) 09/15/16 06:15 Blood Culture Gram Stain - Preliminary Blood Assessment and Plan Plan: #1 bilateral pneumonia: Most probably pneumococcal pneumonia. Patient will be started on ceftriaxone and azithromycin. Patient has positive blood cultures with gram-positive cocci because of his vancomycin was ordered and repeat blood cultures will be obtained #2 gastroesophageal reflux disease #3 hypertension #4 coronary artery disease #5 osteoarthritis. 6 mild senile dementia. #7 hypokalemia potassium will be supplemented. #8 COPD with without significant exacerbation #9 left hypoechoic kidney lesion for which we're obtaining an MRI For above-mentioned chronic medical problems I'll continue her home medications.
--- NOTE | 2016-09-17 19:05 | P.PN ---
Subjective Patient is a 81-year-old female admitted for multilobar pneumonia and severe sepsis secondary to that. Patient didn't have any significant clinical improvement. Obtaining an MRi of the kidney because of a masslike lesion in the left kidney 09/17/2016 Patient is looking worse today is more thick Neck, because of which patient is being transferred to ICU discussed the case with Dr. monzon in pulmonology [place] Patient can use to complain of generalized fatigue and shortness of breath, denied any abdominal pain denied any nausea Objective - Vital Signs Vital signs: Vital Signs Temp 98.6 F 09/17/16 15:45 Pulse 84 09/17/16 18:45 Resp 37 H 09/17/16 18:00 BP 104/61 09/17/16 18:00 Pulse Ox 94 L 09/17/16 18:00 Intake & Output 09/17/16 09/17/16 09/18/16 06:59 18:59 06:59 Intake Total 400 60 Output Total 600 Balance 400 -540 Weight 74.077 kg 77.1 kg Intake: IV 60 0.9 at KVO 60 Oral 400 Output: Urine 600 Other: Voiding Method Toilet # Voids 1 1 - Exam GENERAL: The patient is alert and oriented x3, not in any acute distress. Well developed, well nourished. Patient is in mild respiratory distress and thick Neck with shallow breathin HEENT: Pupils are round and equally reacting to light. EOMI. No scleral icterus. No conjunctival pallor. Normocephalic, atraumatic. No pharyngeal erythema. No thyromegaly. CARDIOVASCULAR: S1 and S2 present. No murmurs, rubs, or gallops. PULMONARY: Chest is clear to auscultation, no wheezing or crackles. ABDOMEN: Soft, nontender, nondistended, normoactive bowel sounds. No palpable organomegaly. MUSCULOSKELETAL: No joint swelling or deformity. EXTREMITIES: No cyanosis, clubbing, or pedal edema. NEUROLOGICAL: Gross neurological examination did not reveal any focal deficits. SKIN: No rashes. - Labs CBC & Chem 7: 09/15/16 06:12 09/17/16 08:11 Labs: Abnormal Lab Results - Last 24 Hours (Table) 09/17/16 09/17/16 Range/Units 08:11 15:13 POC Glucose (mg/dL) 120 H (75-99) mg/dL Calcium 8.3 L (8.4-10.2) mg/dL Microbiology - Last 24 Hours (Table) 09/15/16 06:15 Blood Culture Gram Stain - Preliminary Blood Assessment and Plan Plan: #1 bilateral pneumonia: Most probably pneumococcal pneumonia. Patient will be started on ceftriaxone and azithromycin. Patient has positive blood cultures with gram-positive cocci because of his vancomycin was ordered and repeat blood cultures will be obtained. Patient is more tachypneic today being transferred to ICU today obtaining a repeat lactic acid today. Patient received a dose of Lasix. Patient has a masslike consolidation for which patient needed a repeat x -ray or chest CT once her pneumonia improves. #2 gastroesophageal reflux disease #3 hypertension #4 coronary artery disease #5 osteoarthritis. 6 mild senile dementia. #7 hypokalemia potassium will be supplemented. #8 COPD with without significant exacerbation #9 left hypoechoic kidney lesion for which we're obtaining an MRI For above-mentioned chronic medical problems I'll continue her home medications.
[2016-09-17] MEDS: methylPREDNISolone SOD SUCCI 125 MG/2 ML VIAL IV SCH (23:50)
[2016-09-18] MEDS ORDERED: Potassium Replacement Protocol 1 EACH MISC MISCELLANE PRN (00:41)
[2016-09-18] MEDS ORDERED: POTASSIUM CHLORIDE ER 20 MEQ TAB.ER PO SCH (01:00)
[2016-09-18] MEDS: IPRATROPIUM-ALBUTEROL 3 ML NEB INHALATION SCH ×6 (02:41→19:26)
[2016-09-18] MEDS: methylPREDNISolone SOD SUCCI 125 MG/2 ML VIAL IV SCH ×3 (05:18→17:49)
[2016-09-18 05:32] LABS: Basophils % (A) 0 %; CH 26.9; CHCM 31.8; Eosinophils # (A) 0.1 k/uL (0-0.7); Eosinophils % (A) 2 %; HDW 2.95; HGB 9.7 gm/dL (11.4-16.0); Hypochromasia Slight; Luc # (Auto) 0.04; Luc % (Auto) 1; Lymphocytes # (A) 0.6 k/uL (1.0-4.8); Lymphocytes % (A) 13 %; MCH 27.4 pg (25.0-35.0); MCHC 32.2 g/dL (31.0-37.0); Mean Platelet Volume 8.3; Monocytes # (A) 0.1 k/uL (0-1.0); Monocytes % (A) 1 %; Neutrophils # (A) 3.6 k/uL (1.3-7.7); Neutrophils % (A) 82 %; RBC 3.53 m/uL (3.80-5.40); RDW 13.9 % (11.5-15.5); WBC 4.3 k/uL (3.8-10.6); WBC (Perox) 4.68
[2016-09-18 05:40] LABS: Anion Gap 8 mmol/L; Blood Urea Nitrogen 12 mg/dL (7-17); Calcium 8.4 mg/dL (8.4-10.2); Carbon Dioxide 23 mmol/L (22-30); Chloride 105 mmol/L (98-107); Glucose 156 mg/dL (74-99); Magnesium 2.1 mg/dL (1.6-2.3); Non-African American GFR(MDRD) >60 (>60 ml/min/1.73 sqM); Phosphorous 2.5 mg/dL (2.5-4.5); Potassium 4.5 mmol/L (3.5-5.1); Sodium 136 mmol/L (137-145)
[2016-09-18] MEDS ORDERED: VANCOMYCIN TROUGH DUE 1 EACH MISC MISCELLANE ONE (08:00)
--- NOTE | 2016-09-18 08:00 | XR ---
EXAMINATION TYPE: XR chest 1V DATE OF EXAM: 09/18/2016 HISTORY: Shortness of breath. COMPARISON: 09/17/2016 TECHNIQUE: Single view of the chest is submitted. FINDINGS: Demonstrated are scattered senescent parenchymal change. Left perihilar and left basilar infiltrate persists although appear to be improving. No additional in filtrates identified at this time. The heart is stable. Hilar and mediastinal structures are within normal limits. Degenerative changes are seen of the dorsal spine. IMPRESSION: 1. Left perihilar and left basilar infiltrate persists although appear to be improving. No additiona l infiltrates identified at this time.
[2016-09-18] MEDS: AZITHROMYCIN 500 MG TAB PO SCH (09:18)
[2016-09-18] MEDS: HEPARIN SODIUM,PORCINE 5,000 UNIT/ML 1 ML VIAL SQ SCH ×2 (09:18→21:05)
[2016-09-18] MEDS: CALCIUM CARB-VIT D 500MG-200UN 1 EACH TAB PO SCH (09:18)
[2016-09-18] MEDS: ASPIRIN 81 MG CHEW PO SCH (09:18)
[2016-09-18] MEDS: PANTOPRAZOLE 40 MG TABLET PO SCH (09:18)
[2016-09-18] MEDS: ATORVASTATIN 20 MG TAB PO SCH (09:18)
[2016-09-18] MEDS ORDERED: FUROSEMIDE 10 MG/ML 4 ML VIAL IV STA (09:58)
[2016-09-18] MEDS: VANCOMYCIN 1,250 MG in SODIUM CHLORIDE 0.9% 250 ML IVPB SCH (11:30)
--- NOTE | 2016-09-18 12:41 | P.PN ---
Subjective 81-year-old female patient, presented with progressive increase in shortness of breath over the past 3 days. The patient was having low-grade fever, chills, chest congestion, and she was feeling extremely tired and weak to the point where she collapsed and she had an episode of fall while trying to get up. For that reason she presented to the hospital and further investigation showed that the patient is an extensive right lung pneumonia. A CAT scan of the chest was done and showed no evidence of any pulmonary embolism. There was bilateral areas of consolidation worse in the left lower lobe and lingula. A masslike consolidation present in the left lower lobe. This is typical of an underlying pneumonia. The patient remained hemodynamically stable. No change in mental status. No hemoptysis. No pleurisy. She has been started on a combination of Rocephin and Zithromax. A left kidney lesion was also seen and a ultrasound of the kidneys was done and it showed indeterminate hypoechoic areas within both kidneys and the left knee lesion seemed to be solid in appearance and further CAT scan at the kidneys was recommended. The patient is seen again today 09/16/2016 in follow-up on the regular medical floor. She was seen and evaluated yesterday by Dr. Winn though his dictation was today. A masslike consolidation was present in the left lower lobe suspicious for underlying pneumonia. The CAT scan also revealed left kidney lesion that was solid in appearance. He ordered a MRI of the kidney today. Presently, the patient is resting quite comfortably in bed. She denies any worsening shortness of breath, cough or congestion. Preliminary blood culture reveals gram-positive cocci in clusters. She has been initiated on vancomycin and continues on ceftriaxone and azithromycin. She denies any worsening shortness of breath cough or congestion. She is maintaining good O2 saturations in the high 90s on 2 L/m per nasal cannula. She's been afebrile. Hemodynamically stable. On 09/17/2016 the patient is being seen in follow-up. As mentioned earlier, the patient came in for a COPD exacerbation and left lower lobe pneumonia. She was found to be more labored breathing on today's evaluation. She was more tachypneic. Despite that she was still on 2 L of oxygen nasal cannula. An immediate chest x-ray was done that showed persistent infiltration of the left lower lobe. Segmental and subsegmental changes in the right lung base related to atelectasis. Meanwhile the patient remains on a combination of Rocephin, Zithromax and vancomycin. The preliminary blood cultures showing gram-positive cocci and we're awaiting final cultures and identifications. Meanwhile, the patient completed an MRI/of the kidneys and the lesion of concern in the upper lobe of the left kidney sock turner to be a cortical cyst than a renal mass. She was reassured in that regard. Nevertheless, the main concern remains her worsening shortness of breath. She is still being treated for an ongoing pneumonia. Admit recommendations to chest this patient to the intensive care for closer monitoring and possible BiPAP use if needed. On 09/18/2016 the patient is being seen in follow-up in the intensive care unit. She is less short of breath compared to yesterday. She got moved to the ICU because of increased labored breathing. She was kept on the same antibiotic regimen included a combination of Rocephin and Zithromax and vancomycin. The blood cultures still not resulted however there is a gram- positive cocci in groups. The chest x-ray from today showing improvement in left lower lobe consolidation. The patient is hemodynamically stable. She is producing adequate amount of urine output. On her cardiac rhythm she is having frequent PACs. Her potassium level is borderline low. She is not having any nausea or vomiting or any change in mental status. Objective - Vital Signs Vital signs: Vital Signs Temp 98.0 F 09/18/16 08:00 Pulse 84 09/18/16 11:43 Resp 19 09/18/16 11:00 BP 119/71 09/18/16 11:00 Pulse Ox 93 L 09/18/16 11:00 Intake & Output 09/17/16 09/18/16 09/18/16 18:59 06:59 18:59 Intake Total 60 360 100 Output Total 600 925 Balance -540 -565 100 Weight 77.1 kg 76.1 kg 76.1 kg Intake: IV 60 240 100 0.9 at KVO 60 240 100 Oral 120 Output: Urine 600 925 Other: Voiding Method Bedside Commode Bedside Commode # Voids 1 1 # Bowel Movements 0 - Exam The patient is in no respiratory distress and resting comfortably in bed. Not using his muscles of breathing. She is a bit lethargic in addition.Head exam was generally normal. There was no scleral icterus or corneal arcus. Mucous membranes were moist.Neck was supple and without jugular venous distension, thyromegaly, or carotid bruits. Carotids were easily palpable bilaterally. There was no adenopathy. Lung sounds are markedly diminished bilaterally especially left lung base along with some left basilar crackles.Cardiac exam revealed the PMI to be normally situated and sized. The rhythm was regular and no extrasystoles were noted during several minutes of auscultation. The first and second heart sounds were normal and physiologic splitting of the second heart sound was noted. There were no murmurs, rubs, clicks, or gallops.Abdominal exam revealed normal bowel sounds. The abdomen was soft, non- tender, and without masses, organomegaly, or appreciable enlargement of the abdominal aorta. Organs cannot be accurately palpated as the patient is obese.Examination of the extremities revealed easily palpable radial, femoral and pedal pulses. There was no cyanosis, clubbing or edema. - Labs CBC & Chem 7: 09/18/16 04:52 09/18/16 04:52 Labs: Abnormal Lab Results - Last 24 Hours (Table) 09/17/16 09/18/16 09/18/16 Range/Units 15:13 04:52 04:52 RBC 3.53 L (3.80-5.40) m/uL Hgb 9.7 L (11.4-16.0) gm/dL Hct 30.0 L (34.0-46.0) % Lymphocytes # 0.6 L (1.0-4.8) k/uL Sodium 136 L (137-145) mmol/L Glucose 156 H (74-99) mg/dL POC Glucose (mg/dL) 120 H (75-99) mg/dL Microbiology - Last 24 Hours (Table) 09/17/16 12:10 Gram Stain - Preliminary Sputum 09/15/16 06:15 Blood Culture Gram Stain - Preliminary Blood Assessment and Plan Plan: Assessment 1 multilobar pneumonia with masslike consolidation involving the left lung/ lingular segment of the left lower lobe. The patient is still having gram- positive cocci in groups and final cultures have not been resulted yet. Meanwhile she is on a combination of Rocephin and Zithromax and vancomycin. Today's chest x-ray shows some improvement in the left lower lobe pneumonia. Clinically the patient is improved and she is less short of breath and she did not require BiPAP therapy. We'll continue same antibiotic coverage. Repeat chest x-ray in a.m. 2 acute hypoxic respiratory failure secondary to above 3 acute dyspnea secondary to above and the patient also has a component of an acute COPD exacerbation started on bronchodilators and systemic steroids 4 COPD moderate to severe with a baseline FEV1 of 66% of predicted 5 coronary artery disease with previous coronary intervention and stenting and previous bypass surgery 6 hypertension 7 hyperlipidemia 8 history of shingles 9 history of skin cancer 10 history of anxiety/depression 11 osteoporosis/osteoarthritis 12 gout 13 left cystic kidney lesion 14 frequent PACs 15 borderline hypokalemia 16 normocytic anemia Plan continue Rocephin and Zithromax as broad-spectrum antibiotic coverage. Continue vancomycin. Awaiting blood culture results. Replace the potassium levels. Obtain echocardiogram. Provide the patient incentive spirometer. Continue bronchodilators. Continue steroids. Mobility if possible today. We' ll make further recommendations based on her progress. She'll be kept in ICU for 24 hours. Repeat chest x-ray in the morning. She was also noted to have some increased swelling lower extremity. We'll given a dose of Lasix 40 mg IV push.
--- NOTE | 2016-09-18 14:09 | P.PN ---
Subjective Patient is a 81-year-old female admitted for multilobar pneumonia and severe sepsis secondary to that. Patient didn't have any significant clinical improvement. Obtaining an MRi of the kidney because of a masslike lesion in the left kidney 09/17/2016 Patient is looking worse today is more thick Neck, because of which patient is being transferred to ICU discussed the case with Dr. monzon in [facility]monology [place] 09/18/2016 Patient is looking much better today, blood cultures are not finalized yet will check with microvalve the lab Patient denied shortness of breath, denied any abdominal pain denied any nausea Objective - Vital Signs Vital signs: Vital Signs Temp 98.0 F 09/18/16 08:00 Pulse 84 09/18/16 11:43 Resp 19 09/18/16 11:00 BP 119/71 09/18/16 11:00 Pulse Ox 93 L 09/18/16 11:00 Intake & Output 09/17/16 09/18/16 09/18/16 18:59 06:59 18:59 Intake Total 60 360 100 Output Total 600 925 Balance -540 -565 100 Weight 77.1 kg 76.1 kg 76.1 kg Intake: IV 60 240 100 0.9 at KVO 60 240 100 Oral 120 Output: Urine 600 925 Other: Voiding Method Bedside Commode Bedside Commode # Voids 1 1 # Bowel Movements 0 - Exam GENERAL: The patient is alert and oriented x3, not in any acute distress. Well developed, well nourished. Patient is not in respiratory distress today. HEENT: Pupils are round and equally reacting to light. EOMI. No scleral icterus. No conjunctival pallor. Normocephalic, atraumatic. No pharyngeal erythema. No thyromegaly. CARDIOVASCULAR: S1 and S2 present. No murmurs, rubs, or gallops. PULMONARY: Chest is clear to auscultation, no wheezing or crackles. ABDOMEN: Soft, nontender, nondistended, normoactive bowel sounds. No palpable organomegaly. MUSCULOSKELETAL: No joint swelling or deformity. EXTREMITIES: No cyanosis, clubbing, or pedal edema. NEUROLOGICAL: Gross neurological examination did not reveal any focal deficits. SKIN: No rashes. - Labs CBC & Chem 7: 09/18/16 04:52 09/18/16 04:52 Labs: Abnormal Lab Results - Last 24 Hours (Table) 09/17/16 09/18/16 09/18/16 Range/Units 15:13 04:52 04:52 RBC 3.53 L (3.80-5.40) m/uL Hgb 9.7 L (11.4-16.0) gm/dL Hct 30.0 L (34.0-46.0) % Lymphocytes # 0.6 L (1.0-4.8) k/uL Sodium 136 L (137-145) mmol/L Glucose 156 H (74-99) mg/dL POC Glucose (mg/dL) 120 H (75-99) mg/dL Microbiology - Last 24 Hours (Table) 09/15/16 06:15 Blood Culture Gram Stain - Preliminary Blood Blood Culture - Preliminary Coagulase Negative Staph 09/17/16 11:22 Blood Culture - Preliminary Blood No Growth after 24 hours 09/17/16 12:10 Gram Stain - Preliminary Sputum Assessment and Plan Plan: #1 bilateral pneumonia: Most probably pneumococcal pneumonia. Patient will be started on ceftriaxone and azithromycin. Patient has positive blood cultures with gram-positive cocci because of his vancomycin was ordered and repeat blood cultures were obtained. Patient is looking much better today. We'll continue with present treatment. 24 more hour monitoring in ICU. #2 gastroesophageal reflux disease #3 hypertension #4 coronary artery disease #5 osteoarthritis. 6 mild senile dementia. #7 hypokalemia potassium will be supplemented. #8 COPD with without significant exacerbation #9 left hypoechoic kidney lesion MRI is negative for any cancerous lesions appear to be simple cyst on MRI. For above-mentioned chronic medical problems I'll continue her home medications.
[2016-09-18] MEDS ORDERED: IPRATROPIUM-ALBUTEROL 3 ML NEB INHALATION PRN (21:29)
[2016-09-19] MEDS: methylPREDNISolone SOD SUCCI 125 MG/2 ML VIAL IV SCH ×5 (00:16→22:42)
[2016-09-19 05:37] LABS: Basophils % (A) 0 %; CH 26.4; CHCM 31.9; Eosinophils % (A) 0 %; HCT 30.5 % (34.0-46.0); HDW 3.13; HGB 9.8 gm/dL (11.4-16.0); Hypochromasia Slight; Luc # (Auto) 0.04; Luc % (Auto) 0; Lymphocytes # (A) 0.7 k/uL (1.0-4.8); Lymphocytes % (A) 8 %; MCH 26.6 pg (25.0-35.0); MCHC 32.1 g/dL (31.0-37.0); Mean Platelet Volume 7.4; Monocytes # (A) 0.1 k/uL (0-1.0); Monocytes % (A) 2 %; Neutrophils % (A) 90 %; RBC 3.67 m/uL (3.80-5.40); RDW 13.4 % (11.5-15.5); WBC 8.9 k/uL (3.8-10.6); WBC (Perox) 9.22
[2016-09-19 05:51] LABS: Anion Gap 9 mmol/L; Blood Urea Nitrogen 22 mg/dL (7-17); Calcium 8.7 mg/dL (8.4-10.2); Carbon Dioxide 24 mmol/L (22-30); Chloride 106 mmol/L (98-107); Glucose 164 mg/dL (74-99); Magnesium 2.2 mg/dL (1.6-2.3); Non-African American GFR(MDRD) >60 (>60 ml/min/1.73 sqM); Phosphorous 2.7 mg/dL (2.5-4.5); Sodium 139 mmol/L (137-145)
--- NOTE | 2016-09-19 07:52 | XR ---
EXAMINATION TYPE: XR chest 1V DATE OF EXAM: 09/19/2016 HISTORY: Shortness of breath. COMPARISON: 09/18/2016 TECHNIQUE: Single view of the chest is submitted. FINDINGS: Demonstrated are scattered senescent parenchymal change. Persistent but improving left perihilar and left basilar infiltrate. The heart is stable. Hilar and mediastinal structures are within normal limits. Degenerative changes are seen of the dorsal spine. IMPRESSION: 1. Persistent but improving left perihilar and left basilar infiltrate.
[2016-09-19] MEDS: PANTOPRAZOLE 40 MG TABLET PO SCH (08:45)
[2016-09-19] MEDS: HEPARIN SODIUM,PORCINE 5,000 UNIT/ML 1 ML VIAL SQ SCH ×2 (08:46→20:23)
[2016-09-19] MEDS: ATORVASTATIN 20 MG TAB PO SCH (08:46)
[2016-09-19] MEDS: CALCIUM CARB-VIT D 500MG-200UN 1 EACH TAB PO SCH (08:46)
[2016-09-19] MEDS: ASPIRIN 81 MG CHEW PO SCH (08:46)
[2016-09-19] MEDS: AZITHROMYCIN 500 MG TAB PO SCH (08:46)
[2016-09-19] MEDS ORDERED: VANCOMYCIN 1,500 MG in SODIUM CHLORIDE 0.9% 250 ML IVPB SCH (09:00)
[2016-09-19] MEDS: IPRATROPIUM-ALBUTEROL 3 ML NEB INHALATION SCH ×2 (09:02→11:50)
--- NOTE | 2016-09-19 11:15 | P.PN ---
Subjective 81-year-old female patient, presented with progressive increase in shortness of breath over the past 3 days. The patient was having low-grade fever, chills, chest congestion, and she was feeling extremely tired and weak to the point where she collapsed and she had an episode of fall while trying to get up. For that reason she presented to the hospital and further investigation showed that the patient is an extensive right lung pneumonia. A CAT scan of the chest was done and showed no evidence of any pulmonary embolism. There was bilateral areas of consolidation worse in the left lower lobe and lingula. A masslike consolidation present in the left lower lobe. This is typical of an underlying pneumonia. The patient remained hemodynamically stable. No change in mental status. No hemoptysis. No pleurisy. She has been started on a combination of Rocephin and Zithromax. A left kidney lesion was also seen and a ultrasound of the kidneys was done and it showed indeterminate hypoechoic areas within both kidneys and the left knee lesion seemed to be solid in appearance and further CAT scan at the kidneys was recommended. The patient is seen again today 09/16/2016 in follow-up on the regular medical floor. She was seen and evaluated yesterday by Dr. Winn though his dictation was today. A masslike consolidation was present in the left lower lobe suspicious for underlying pneumonia. The CAT scan also revealed left kidney lesion that was solid in appearance. He ordered a MRI of the kidney today. Presently, the patient is resting quite comfortably in bed. She denies any worsening shortness of breath, cough or congestion. Preliminary blood culture reveals gram-positive cocci in clusters. She has been initiated on vancomycin and continues on ceftriaxone and azithromycin. She denies any worsening shortness of breath cough or congestion. She is maintaining good O2 saturations in the high 90s on 2 L/m per nasal cannula. She's been afebrile. Hemodynamically stable. On 09/17/2016 the patient is being seen in follow-up. As mentioned earlier, the patient came in for a COPD exacerbation and left lower lobe pneumonia. She was found to be more labored breathing on today's evaluation. She was more tachypneic. Despite that she was still on 2 L of oxygen nasal cannula. An immediate chest x-ray was done that showed persistent infiltration of the left lower lobe. Segmental and subsegmental changes in the right lung base related to atelectasis. Meanwhile the patient remains on a combination of Rocephin, Zithromax and vancomycin. The preliminary blood cultures showing gram-positive cocci and we're awaiting final cultures and identifications. Meanwhile, the patient completed an MRI/of the kidneys and the lesion of concern in the upper lobe of the left kidney bottom turning lathe turner to be a cortical cyst than a renal mass. She was reassured in that regard. Nevertheless, the main concern remains her worsening shortness of breath. She is still being treated for an ongoing pneumonia. Admit recommendations to chest this patient to the intensive care for closer monitoring and possible BiPAP use if needed. On 09/18/2016 the patient is being seen in follow-up in the intensive care unit. She is less short of breath compared to yesterday. She got moved to the ICU because of increased labored breathing. She was kept on the same antibiotic regimen included a combination of Rocephin and Zithromax and vancomycin. The blood cultures still not resulted however there is a gram- positive cocci in groups. The chest x-ray from today showing improvement in left lower lobe consolidation. The patient is hemodynamically stable. She is producing adequate amount of urine output. On her cardiac rhythm she is having frequent PACs. Her potassium level is borderline low. She is not having any nausea or vomiting or any change in mental status. On 09/16/2016 I'm seeing this patient in follow-up in the intensive care unit regarding her extensive left lung pneumonia. The blood culture has resulted in to staph hominis and the patient remains on a combination of Rocephin, Zithromax , and IV vancomycin. Her chest x-ray showing improvement in the left lower lobe pulmonary infiltrate. Clinically she is improved. She is breathing easier. Not coughing much of sputum. Afebrile. Hemodynamically stable. Not requiring any BiPAP or any other form of respiratory support at this point. Adequate urine output. She is getting up back and forth a bedside chair. Potassium level has been replaced and it's up to 4. The cardiac rhythm was done yesterday and results are still still pending. Meanwhile the patient's cardiac rhythm is sinus and she is having occasional PVCs. Objective - Vital Signs Vital signs: Vital Signs Temp 98.4 F 09/19/16 08:00 Pulse 92 09/19/16 10:00 Resp 19 09/19/16 10:00 BP 121/64 09/19/16 10:00 Pulse Ox 96 09/19/16 10:00 Intake & Output 09/18/16 09/19/16 09/19/16 18:59 06:59 18:59 Intake Total 1140 260 430 Output Total 300 1000 Balance 840 -740 430 Weight 76.1 kg 75.9 kg Intake: IV 590 260 310 0.9 at KVO 240 260 60 Vancomycin 1,250 mg In 250 250 Sodium Chloride 0.9% 250 ml @ 125 mls/hr IVPB DAILY [facility] Rx#:[id number] cefTRIAXone 1,000 mg In 100 Sodium Chloride 0.9% 50 ml @ 100 mls/hr IVPB Q24H [facility] Rx#:[id number] Oral 550 120 Output: Urine 300 1000 Other: Voiding Method Bedside Commode Bedside Commode Bedside Commode # Voids 1 1 - Exam The patient is in no respiratory distress and resting comfortably in bed. Not using his muscles of breathing. She is a bit lethargic in addition.Head exam was generally normal. There was no scleral icterus or corneal arcus. Mucous membranes were moist.Neck was supple and without jugular venous distension, thyromegaly, or carotid bruits. Carotids were easily palpable bilaterally. There was no adenopathy. Lung sounds are markedly diminished bilaterally especially left lung base along with some left basilar crackles.Cardiac exam revealed the PMI to be normally situated and sized. The rhythm was regular and no extrasystoles were noted during several minutes of auscultation. The first and second heart sounds were normal and physiologic splitting of the second heart sound was noted. There were no murmurs, rubs, clicks, or gallops.Abdominal exam revealed normal bowel sounds. The abdomen was soft, non- tender, and without masses, organomegaly, or appreciable enlargement of the abdominal aorta. Organs cannot be accurately palpated as the patient is obese.Examination of the extremities revealed easily palpable radial, femoral and pedal pulses. There was no cyanosis, clubbing or edema. - Labs CBC & Chem 7: 09/19/16 04:25 09/19/16 04:25 Labs: Abnormal Lab Results - Last 24 Hours (Table) 09/19/16 09/19/16 Range/Units 04:25 04:25 RBC 3.67 L (3.80-5.40) m/uL Hgb 9.8 L (11.4-16.0) gm/dL Hct 30.5 L (34.0-46.0) % Neutrophils # 8.0 H (1.3-7.7) k/uL Lymphocytes # 0.7 L (1.0-4.8) k/uL BUN 22 H (7-17) mg/dL Glucose 164 H (74-99) mg/dL Microbiology - Last 24 Hours (Table) 09/17/16 12:10 Gram Stain - Final Sputum Sputum Culture - Final 09/18/16 04:52 Blood Culture - Preliminary Blood No Growth after 24 hours 09/15/16 06:15 Blood Culture Gram Stain - Final Blood Blood Culture - Final Staph hominis sub sp. hominis 09/17/16 11:22 Blood Culture - Preliminary Blood No Growth after 24 hours Assessment and Plan Plan: Assessment 1 multilobar pneumonia with masslike consolidation involving the left lung/ lingular segment of the left lower lobe. The patient is still having gram- positive cocci in groups and final cultures resulted in to staff home and it.. Meanwhile she is on a combination of Rocephin and Zithromax and vancomycin. Today's chest x-ray shows some improvement in the left lower lobe pneumonia. Clinically the patient is improved and is less short of breath and the chest x- ray showing improvement of the left lower lobe pneumonia. 2 acute hypoxic respiratory failure secondary to above 3 acute dyspnea secondary to above and the patient also has a component of an acute COPD exacerbation started on bronchodilators and systemic steroids 4 COPD moderate to severe with a baseline FEV1 of 66% of predicted 5 coronary artery disease with previous coronary intervention and stenting and previous bypass surgery 6 hypertension 7 hyperlipidemia 8 history of shingles 9 history of skin cancer 10 history of anxiety/depression 11 osteoporosis/osteoarthritis 12 gout 13 left cystic kidney lesion 14 frequent PACs 15 borderline hypokalemia recovered 16 normocytic anemia Plan continue Rocephin and Zithromax as broad-spectrum antibiotic coverage. Continue vancomycin. Awaiting the results of the echocardiogram appears start the patient on metoprolol 12.5 mg by mouth twice a day. Incentive spirometer. Increased level of activity as tolerated. I think the patient can be moved to telemetry unit for further monitoring. She can be moved out of the intensive care units. He was started on stool softeners. She'll be also given Restoril 15 minute visit bedtime for sleep.
[2016-09-19] MEDS ORDERED: LEVALBUTEROL NEB (CONC) 1.25 MG/0.5 ML AMP INHALATION PRN (12:27)
[2016-09-19] MEDS ORDERED: IPRATROPIUM 0.5 MG/2.5 ML NEBU INHALATION PRN (12:28)
[2016-09-19] MEDS: POLYETHYLENE GLYCOL 3350 17 GM POWD.PACK PO SCH (12:38)
[2016-09-19] MEDS: METOPROLOL TARTRATE 12.5 MG TAB PO SCH ×2 (12:38→20:23)
--- NOTE | 2016-09-19 14:10 | P.PN ---
Subjective Patient is a 81-year-old female admitted for multilobar pneumonia and severe sepsis secondary to that. Patient didn't have any significant clinical improvement. Obtaining an MRi of the kidney because of a masslike lesion in the left kidney 09/17/2016 Patient is looking worse today is more thick Neck, because of which patient is being transferred to ICU discussed the case with Dr. monzon in pulmonology [facility] 09/18/2016 Patient is looking much better today, blood cultures are not finalized yet will check with microvalve the lab 09/19/2016 Patient does have significant improvement even compared to yesterday. Patient is saturating well on 2 L of oxygen. Patient is not on any IV fluids and Lasix at this time. Patient has staph hominis on the blood cultures which is possibly a contamination and Comycin will discontinue Rocephin and azithromycin will be continued. Patient will be transferred out of ICU. Patient denied shortness of breath, denied any abdominal pain denied any nausea Objective - Vital Signs Vital signs: Vital Signs Temp 97.7 F 09/19/16 13:47 Pulse 90 09/19/16 13:47 Resp 20 09/19/16 13:47 BP 101/65 09/19/16 13:47 Pulse Ox 95 09/19/16 13:47 Intake & Output 09/18/16 09/19/16 09/19/16 18:59 06:59 18:59 Intake Total 1140 260 570 Output Total 300 1000 300 Balance 840 -740 270 Weight 76.1 kg 75.9 kg Intake: IV 590 260 450 0.9 at KVO 240 260 100 Vancomycin 1,250 mg In 250 250 Sodium Chloride 0.9% 250 ml @ 125 mls/hr IVPB DAILY [facility] Rx#:[id number] cefTRIAXone 1,000 mg In 100 100 Sodium Chloride 0.9% 50 ml @ 100 mls/hr IVPB Q24H [facility] Rx#:[id number] Oral 550 120 Output: Urine 300 1000 300 Other: Voiding Method Bedside Commode Bedside Commode Bedside Commode # Voids 1 1 - Exam GENERAL: The patient is alert and oriented x3, not in any acute distress. Well developed, well nourished. Patient is not in respiratory distress today. HEENT: Pupils are round and equally reacting to light. EOMI. No scleral icterus. No conjunctival pallor. Normocephalic, atraumatic. No pharyngeal erythema. No thyromegaly. CARDIOVASCULAR: S1 and S2 present. No murmurs, rubs, or gallops. PULMONARY: Chest is clear to auscultation, no wheezing or crackles. ABDOMEN: Soft, nontender, nondistended, normoactive bowel sounds. No palpable organomegaly. MUSCULOSKELETAL: No joint swelling or deformity. EXTREMITIES: No cyanosis, clubbing, or pedal edema. NEUROLOGICAL: Gross neurological examination did not reveal any focal deficits. SKIN: No rashes. - Labs CBC & Chem 7: 09/19/16 04:25 09/19/16 04:25 Labs: Abnormal Lab Results - Last 24 Hours (Table) 09/19/16 09/19/16 Range/Units 04:25 04:25 RBC 3.67 L (3.80-5.40) m/uL Hgb 9.8 L (11.4-16.0) gm/dL Hct 30.5 L (34.0-46.0) % Neutrophils # 8.0 H (1.3-7.7) k/uL Lymphocytes # 0.7 L (1.0-4.8) k/uL BUN 22 H (7-17) mg/dL Glucose 164 H (74-99) mg/dL Microbiology - Last 24 Hours (Table) 09/17/16 11:22 Blood Culture - Preliminary Blood No Growth after 48 hours 09/17/16 12:10 Gram Stain - Final Sputum Sputum Culture - Final 09/18/16 04:52 Blood Culture - Preliminary Blood No Growth after 24 hours 09/15/16 06:15 Blood Culture Gram Stain - Final Blood Blood Culture - Final Staph hominis sub sp. hominis Assessment and Plan Plan: #1 bilateral pneumonia: Most probably pneumococcal pneumonia. Patient will be started on ceftriaxone and azithromycin. Patient has positive blood cultures with staph hominis which is a contamination and vancomycin is being discontinued and repeat blood cultures are negative. Patient is looking much better today. We'll continue with present treatment. #2 gastroesophageal reflux disease #3 hypertension #4 coronary artery disease #5 osteoarthritis. 6 mild senile dementia. #7 hypokalemia potassium will be supplemented. #8 COPD with without significant exacerbation #9 left hypoechoic kidney lesion MRI is negative for any cancerous lesions appear to be simple cyst on MRI. For above-mentioned chronic medical problems I'll continue her home medications.
[2016-09-19] MEDS: IPRATROPIUM 0.5 MG/2.5 ML NEBU INHALATION SCH ×2 (16:02→19:44)
[2016-09-19] MEDS: LEVALBUTEROL NEB (CONC) 1.25 MG/0.5 ML AMP INHALATION SCH ×2 (16:02→19:44)
[2016-09-19 21:22] LABS: Glucose,Whole Blood 232 mg/dL (75-99)
[2016-09-19] MEDS: INSULIN LISPRO (humaLOG) 300 UNIT/3 ML VIAL SQ SCH (22:42)
[2016-09-19] MEDS: TEMAZEPAM 15 MG CAP PO PRN (22:51)
[2016-09-20 06:09] LABS: Basophils % (A) 0 %; CH 26.8; CHCM 31.7; Eosinophils % (A) 0 %; HCT 27.6 % (34.0-46.0); HDW 3.06; HGB 8.7 gm/dL (11.4-16.0); Hypochromasia Slight; Luc # (Auto) 0.05; Luc % (Auto) 1; Lymphocytes # (A) 0.6 k/uL (1.0-4.8); Lymphocytes % (A) 6 %; MCHC 31.7 g/dL (31.0-37.0); Mean Platelet Volume 7.9; Monocytes # (A) 0.2 k/uL (0-1.0); Monocytes % (A) 2 %; Neutrophils # (A) 9.6 k/uL (1.3-7.7); Neutrophils % (A) 92 %; RBC 3.25 m/uL (3.80-5.40); WBC 10.5 k/uL (3.8-10.6); WBC (Perox) 11.29
[2016-09-20 06:13] LABS: Glucose,Whole Blood 166 mg/dL (75-99)
[2016-09-20 06:20] LABS: Anion Gap 7 mmol/L; Blood Urea Nitrogen 25 mg/dL (7-17); Calcium 8.9 mg/dL (8.4-10.2); Carbon Dioxide 24 mmol/L (22-30); Chloride 108 mmol/L (98-107); Glucose 148 mg/dL (74-99); Magnesium 2.3 mg/dL (1.6-2.3); Non-African American GFR(MDRD) >60 (>60 ml/min/1.73 sqM); Phosphorous 2.6 mg/dL (2.5-4.5); Potassium 4.5 mmol/L (3.5-5.1); Sodium 139 mmol/L (137-145)
[2016-09-20] MEDS: methylPREDNISolone SOD SUCCI 125 MG/2 ML VIAL IV SCH ×2 (06:27→11:02)
[2016-09-20] MEDS: PANTOPRAZOLE 40 MG TABLET PO SCH (06:27)
[2016-09-20] MEDS: INSULIN LISPRO (humaLOG) 300 UNIT/3 ML VIAL SQ SCH ×4 (06:27→21:51)
--- NOTE | 2016-09-20 07:40 | XR ---
EXAMINATION TYPE: XR chest 1V DATE OF EXAM: 09/20/2016 HISTORY: pneumonia. REFERENCE: Previous study dated 09/19/2016. FINDINGS: There has been a sternotomy. There is worsening left basilar airspace disease. There is mild vascular congestion. There is a left- sided effusion. IMPRESSION: WORSENING LEFT-SIDED PNEUMONIA.
[2016-09-20] MEDS: LEVALBUTEROL NEB (CONC) 1.25 MG/0.5 ML AMP INHALATION SCH ×4 (08:22→19:57)
[2016-09-20] MEDS: IPRATROPIUM 0.5 MG/2.5 ML NEBU INHALATION SCH ×4 (08:23→19:57)
--- NOTE | 2016-09-20 08:37 | ECHOF ---
Referral Reason:chf MEASUREMENTS -------- HEIGHT: 157.5 cm WEIGHT: 75.7 kg BP: 93/56 RVIDd: 3.3 cm (< 3.3) IVSd: 0.8 cm (0.6 - 1.1) LVIDd: 4.6 cm (3.9 - 5.3) LVPWd: 1.0 cm (0.6 - 1.1) IVSs: 1.5 cm LVIDs: 3.3 cm LVPWs: 1.7 cm LA Diam: 3.7 cm (2.7 - 3.8) LAESV Index (A-L): 36.20 ml/m Ao Diam: 3.1 cm (2.0 - 3.7) AV Cusp: 1.9 cm (1.5 - 2.6) MV EXCURSION: 18.048 mm (> 18.000) MV EF SLOPE: 103 mm/s (70 - 150) EPSS: 1.2 cm MV E Chris: 0.93 m/s MV DecT: 240 ms MV A Chris: 1.33 m/s MV E/A Ratio: 0.70 AV maxP.81 mmHg AV meanP.87 mmHg AR PHT: 518 ms RAP: 5.00 mmHg RVSP: 42.07 mmHg FINDINGS -------- This was a technically good study. The left ventricular size is normal. Left ventricular wall thickness is normal. Overall left ventricular systolic function is low-normal with, an EF between 50 - 55 %. The right ventricle is mildly enlarged. LA is moderately dilated 34-39 ml/m2 The right atrium is normal in size. There is mild aortic valve sclerosis. There is mild aortic regurgitation. There is mild aortic stenosis present. Peak/mean gradient across the Aortic Valve is 16.81mmHg / 6.87mmHg. Mild mitral annular calcification present. There is trace to mild mitral regurgitation. Mild tricuspid regurgitation present. There is mild pulmonary hypertension. The right ventricular systolic pressure, as measured by Doppler, is 42.07mmHg. The pulmonic valve was not well visualized. The aortic root size is normal. Normal inferior vena cava with normal inspiratory collapse consistent with estimated right atrial pressure of 5 mmHg. There is no pericardial effusion. CONCLUSIONS -------- 1. This was a technically good study. 2. Peak/mean gradient across the Aortic Valve is 16.81mmHg / 6.87mmHg. 3. Mild mitral annular calcification present. 4. There is trace to mild mitral regurgitation. 5. Mild tricuspid regurgitation present. 6. There is mild pulmonary hypertension. 7. The right ventricular systolic pressure, as measured by Doppler, is 42.07mmHg. 8. The pulmonic valve was not well visualized. 9. The aortic root size is normal. 10. Normal inferior vena cava with normal inspiratory collapse consistent with estimated right atrial pressure of 5 mmHg. 11. There is no pericardial effusion. 12. The left ventricular size is normal. 13. Left ventricular wall thickness is normal. 14. Overall left ventricular systolic function is low-normal with, an EF between 50 - 55 %. 15. The right ventricle is mildly enlarged. 16. LA is moderately dilated 34-39 ml/m2 17. There is mild aortic valve sclerosis. 18. There is mild aortic regurgitation. 19. There is mild aortic stenosis present. [employer]CHNICIAN: Isabel Oates RDCS
[2016-09-20] MEDS: AZITHROMYCIN 500 MG TAB PO SCH (09:06)
[2016-09-20] MEDS: METOPROLOL TARTRATE 12.5 MG TAB PO SCH ×2 (09:06→20:30)
[2016-09-20] MEDS: HEPARIN SODIUM,PORCINE 5,000 UNIT/ML 1 ML VIAL SQ SCH ×2 (09:06→20:30)
[2016-09-20] MEDS: CALCIUM CARB-VIT D 500MG-200UN 1 EACH TAB PO SCH (09:06)
[2016-09-20] MEDS: POLYETHYLENE GLYCOL 3350 17 GM POWD.PACK PO SCH (09:06)
[2016-09-20] MEDS: ASPIRIN 81 MG CHEW PO SCH (09:07)
[2016-09-20] MEDS: ATORVASTATIN 20 MG TAB PO SCH (09:07)
--- NOTE | 2016-09-20 10:39 | CONS ---
DATE OF CONSULTATION: 09/19/2016 REASON FOR CONSULTATION: 1. Positive blood cultures. 2. Pneumonia. HISTORY OF PRESENT ILLNESS: The patient is an 81 year old female who was brought into the ER at [facility] on 09/15/16 with chief complaint of increasing shortness of breath that apparently has been getting worse for the last three to four days prior to admission to the hospital. The patient also has a cough, productive of some sputum but no hemoptysis. No significant chest pain. The patient did have some low grade fever and chills. With these symptoms, the patient was evaluated by ER physician. the patient did have a CT angiogram that was negative for PE, however, does show evidence of bilateral consolidation, worse in the left lower lobe and lingula and ( ) consolidation bilaterally. The patient did have blood cultures showing Staphylococcus hominis. Sputum culture has been usual respiratory aida. The patient was treated with Vancomycin, Rocephin and Zithromax. Vanco was discontinued, ID was consulted for further recommendations regarding antibiotic therapy. The patient's blood cultures on 09/15 were positive. That was drawn in the ER at the same time. However, followup blood cultures on 09/18 as well as 09/17 have been negative. The patient is breathing more comfortably. Her cough is getting more productive now but denies having any hemoptysis. No significant chest pain. No nausea, vomiting. No abdominal pain. No diarrhea. The patient with no pacemaker or any artificial hip or knee surgery. REVIEW OF SYSTEMS Constitutional: Positive for weakness and low grade fever. EYES: No complaint. ENT: No complaint. Respiratory: As per HPI. Cardiovascular: No complaint. Genitourinary: No complaint. Gastrointestinal: No complaint. Musculoskeletal: No complaint. Integumentary: No complaint. Psychological: No complaint. Endocrine: No complaint. Neurological: No complaint. Past medical history significant for coronary artery disease, hypertension, hyperlipidemia, osteoarthritis, COPD. Past surgical history: Significant for cholecystectomy, coronary artery bypass grafting. Heart catheterization, tubal ligation, appendectomy. SOCIAL HISTORY: Remote history of smoking. No drinking or drug use. FAMILY HISTORY: Mother with history of kidney cancer. Brother with history of throat cancer. ALLERGIES: CODEINE. Medications currently include the patient is on: 1. Tylenol. 2. Aspirin. 3. Lipitor. 4. Zithromax. 5. Rocephin. 6. Heparin. 7. Xopenex. 8. Solu-Medrol. 9. Lopressor. 10. Narcan. 11. Nitrostat. 12. Protonix. 13. Miralax. 14. Restoril. On examination, blood pressure is 115/55 with a pulse of 82. Temperature 97.2. He is 98% on 2L nasal cannula. General description is an elderly female lying in bed in no distress. No tachypnea or accessory muscles of respiration use. HEENT: Examination shows pallor. No scleral icterus. Oral mucous membranes dry. NECK: Trachea is central. No thyromegaly. LUNGS: Unlabored breathing. Decreased breath sounds. No wheeze. HEART: S1, S2 regular rate and rhythm. ABDOMEN: Soft, no tenderness. No guarding or rigidity. EXTREMITIES: No edema of the feet. SKIN: Examination no rash or mass palpable. NEUROLOGICALLY: The patient is awake, alert and oriented times three. Mood and affect normal. LABS: Hemoglobin 9.8, white count 8.9 with a BUN 22, creatinine 0.80. Vanco trough 13.9. DIAGNOSTIC IMPRESSION AND PLAN: 1. Patient with positive blood cultures, streptococcus hominis, in a patient blood culture was drawn in the ER with no clinical disease to go along with it and the follow up blood cultures have been negative, likely pointing towards contamination. 2. Patient with difficulty breathing, did have a cough with sputum production with evidence of bilateral consolidation, likely pneumonia, community acquired, as sputum has been usual respiratory aida. PLAN: 1. Agree with discontinuation of Vancomycin and the need for further workup for the positive blood cultures more likely representing contamination. 2. The patient to continue Rocephin and Zithromax for underlying community acquired pneumonia as the patient continues to improve. Plan to finish therapy with po Ceftin 500 mg twice a day for another 10 to 12 days. 3. We will follow up on clinical condition and cultures to further adjust medications if needed. Thank you for this consultation. We will follow this patient along with you. ANEESH
[2016-09-20 11:34] LABS: Glucose,Whole Blood 156 mg/dL (75-99)
--- NOTE | 2016-09-20 13:13 | P.PN ---
Subjective 81-year-old female patient, presented with progressive increase in shortness of breath over the past 3 days. The patient was having low-grade fever, chills, chest congestion, and she was feeling extremely tired and weak to the point where she collapsed and she had an episode of fall while trying to get up. For that reason she presented to the hospital and further investigation showed that the patient is an extensive right lung pneumonia. A CAT scan of the chest was done and showed no evidence of any pulmonary embolism. There was bilateral areas of consolidation worse in the left lower lobe and lingula. A masslike consolidation present in the left lower lobe. This is typical of an underlying pneumonia. The patient remained hemodynamically stable. No change in mental status. No hemoptysis. No pleurisy. She has been started on a combination of Rocephin and Zithromax. A left kidney lesion was also seen and a ultrasound of the kidneys was done and it showed indeterminate hypoechoic areas within both kidneys and the left knee lesion seemed to be solid in appearance and further CAT scan at the kidneys was recommended. The patient is seen again today 09/16/2016 in follow-up on the regular medical floor. She was seen and evaluated yesterday by Dr. Winn though his dictation was today. A masslike consolidation was present in the left lower lobe suspicious for underlying pneumonia. The CAT scan also revealed left kidney lesion that was solid in appearance. He ordered a MRI of the kidney today. Presently, the patient is resting quite comfortably in bed. She denies any worsening shortness of breath, cough or congestion. Preliminary blood culture reveals gram-positive cocci in clusters. She has been initiated on vancomycin and continues on ceftriaxone and azithromycin. She denies any worsening shortness of breath cough or congestion. She is maintaining good O2 saturations in the high 90s on 2 L/m per nasal cannula. She's been afebrile. Hemodynamically stable. On 09/17/2016 the patient is being seen in follow-up. As mentioned earlier, the patient came in for a COPD exacerbation and left lower lobe pneumonia. She was found to be more labored breathing on today's evaluation. She was more tachypneic. Despite that she was still on 2 L of oxygen nasal cannula. An immediate chest x-ray was done that showed persistent infiltration of the left lower lobe. Segmental and subsegmental changes in the right lung base related to atelectasis. Meanwhile the patient remains on a combination of Rocephin, Zithromax and vancomycin. The preliminary blood cultures showing gram-positive cocci and we're awaiting final cultures and identifications. Meanwhile, the patient completed an MRI/of the kidneys and the lesion of concern in the upper lobe of the left kidney returns processor to be a cortical cyst than a renal mass. She was reassured in that regard. Nevertheless, the main concern remains her worsening shortness of breath. She is still being treated for an ongoing pneumonia. Admit recommendations to chest this patient to the intensive care for closer monitoring and possible BiPAP use if needed. On 09/18/2016 the patient is being seen in follow-up in the intensive care unit. She is less short of breath compared to yesterday. She got moved to the ICU because of increased labored breathing. She was kept on the same antibiotic regimen included a combination of Rocephin and Zithromax and vancomycin. The blood cultures still not resulted however there is a gram- positive cocci in groups. The chest x-ray from today showing improvement in left lower lobe consolidation. The patient is hemodynamically stable. She is producing adequate amount of urine output. On her cardiac rhythm she is having frequent PACs. Her potassium level is borderline low. She is not having any nausea or vomiting or any change in mental status. On 09/19/2016 I'm seeing this patient in follow-up in the intensive care unit regarding her extensive left lung pneumonia. The blood culture has resulted in to staph hominis and the patient remains on a combination of Rocephin, Zithromax , and IV vancomycin. Her chest x-ray showing improvement in the left lower lobe pulmonary infiltrate. Clinically she is improved. She is breathing easier. Not coughing much of sputum. Afebrile. Hemodynamically stable. Not requiring any BiPAP or any other form of respiratory support at this point. Adequate urine output. She is getting up back and forth a bedside chair. Potassium level has been replaced and it's up to 4. The cardiac rhythm was done yesterday and results are still still pending. Meanwhile the patient's cardiac rhythm is sinus and she is having occasional PVCs. On 09/20/2016 the patient is being seen in follow-up in the medical floor. She got moved out of the intensive care unit yesterday. She is sitting up on a chair. She is calm and comfortable. No significant Mr. distress at rest. No significant cough or sputum production. No pleurisy. No hemoptysis. Still on a combination of Rocephin and Zithromax and vancomycin. ID saw the patient. Based on her opinion the staph in the blood is likely a contaminant and this is a staph hominis species. The patient is afebrile. The patient is not having any cardiac arrhythmias. The patient had an echocardiogram that showed preserved LV function. The patient is on Xopenex and Atrovent about treatments around the clock. The patient is also is on IV Solu-Medrol. Chest x-ray from today is still showing residual inflammatory changes/consolidation of the left lung. Clinically however the patient is much improved. Objective - Vital Signs Vital signs: Vital Signs Temp 98.5 F 09/20/16 11:59 Pulse 92 09/20/16 12:57 Resp 18 09/20/16 11:59 BP 120/68 09/20/16 11:59 Pulse Ox 97 09/20/16 11:59 Intake & Output 09/19/16 09/20/16 09/20/16 18:59 06:59 18:59 Intake Total 570 684 Output Total 300 300 Balance 270 -300 684 Weight 75.7 kg Intake: IV 450 0.9 at KVO 100 Vancomycin 1,250 mg In 250 Sodium Chloride 0.9% 250 ml @ 125 mls/hr IVPB DAILY [facility] Rx#:[id number] cefTRIAXone 1,000 mg In 100 Sodium Chloride 0.9% 50 ml @ 100 mls/hr IVPB Q24H [facility] Rx#:[id number] Oral 120 684 Output: Urine 300 300 Other: Voiding Method Toilet Toilet Toilet Bedside Commode Bedside Commode Bedside Commode # Voids 1 - Exam The patient is in no respiratory distress and resting comfortably in bed. Not using his muscles of breathing. She is a bit lethargic in addition.Head exam was generally normal. There was no scleral icterus or corneal arcus. Mucous membranes were moist.Neck was supple and without jugular venous distension, thyromegaly, or carotid bruits. Carotids were easily palpable bilaterally. There was no adenopathy. Lung sounds are markedly diminished bilaterally especially left lung base along with some left basilar crackles.Cardiac exam revealed the PMI to be normally situated and sized. The rhythm was regular and no extrasystoles were noted during several minutes of auscultation. The first and second heart sounds were normal and physiologic splitting of the second heart sound was noted. There were no murmurs, rubs, clicks, or gallops.Abdominal exam revealed normal bowel sounds. The abdomen was soft, non- tender, and without masses, organomegaly, or appreciable enlargement of the abdominal aorta. Organs cannot be accurately palpated as the patient is obese.Examination of the extremities revealed easily palpable radial, femoral and pedal pulses. There was no cyanosis, clubbing or edema. - Labs CBC & Chem 7: 09/20/16 05:39 09/20/16 05:36 Labs: Abnormal Lab Results - Last 24 Hours (Table) 09/19/16 09/20/16 09/20/16 Range/Units 21:21 05:36 05:39 RBC 3.25 L (3.80-5.40) m/uL Hgb 8.7 L (11.4-16.0) gm/dL Hct 27.6 L (34.0-46.0) % Neutrophils # 9.6 H (1.3-7.7) k/uL Lymphocytes # 0.6 L (1.0-4.8) k/uL Chloride 108 H (98-107) mmol/L BUN 25 H (7-17) mg/dL Glucose 148 H (74-99) mg/dL POC Glucose (mg/dL) 232 H (75-99) mg/dL 09/20/16 09/20/16 Range/Units 06:11 11:32 RBC (3.80-5.40) m/uL Hgb (11.4-16.0) gm/dL Hct (34.0-46.0) % Neutrophils # (1.3-7.7) k/uL Lymphocytes # (1.0-4.8) k/uL Chloride (98-107) mmol/L BUN (7-17) mg/dL Glucose (74-99) mg/dL POC Glucose (mg/dL) 166 H 156 H (75-99) mg/dL Microbiology - Last 24 Hours (Table) 09/18/16 04:52 Blood Culture - Preliminary Blood No Growth after 48 hours 09/17/16 11:22 Blood Culture - Preliminary Blood No Growth after 48 hours 09/17/16 12:10 Gram Stain - Final Sputum Sputum Culture - Final Assessment and Plan Plan: Assessment 1 multilobar pneumonia with masslike consolidation involving the left lung/ lingular segment of the left lower lobe. Clinically the patient is much improved and the patient is doing very well and she got moved out of the intensive care unit. The chest x-ray lagging behind and there is some residual pneumonic changes and left lung. 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 This continued IV Solu Medrol start the patient a prednisone burst taper. Ambulate in the hallway. Continue bronchodilators. Increased level of activity as tolerated. We'll continue to follow.
[2016-09-20] MEDS: LEVOFLOXACIN 750 MG TAB PO SCH (14:53)
[2016-09-20 16:35] LABS: Glucose,Whole Blood 192 mg/dL (75-99)
[2016-09-20 21:46] LABS: Glucose,Whole Blood 141 mg/dL (75-99)
[2016-09-20] MEDS: TEMAZEPAM 15 MG CAP PO PRN (21:51)
[2016-09-21] MEDS: LEVALBUTEROL NEB (CONC) 1.25 MG/0.5 ML AMP INHALATION SCH ×2 (07:05→11:00)
[2016-09-21] MEDS: IPRATROPIUM 0.5 MG/2.5 ML NEBU INHALATION SCH ×2 (07:06→11:00)
[2016-09-21 07:21] LABS: Glucose,Whole Blood 136 mg/dL (75-99)
[2016-09-21] MEDS: METOPROLOL TARTRATE 12.5 MG TAB PO SCH (08:08)
[2016-09-21] MEDS: ASPIRIN 81 MG CHEW PO SCH (08:08)
[2016-09-21] MEDS: CALCIUM CARB-VIT D 500MG-200UN 1 EACH TAB PO SCH (08:08)
[2016-09-21] MEDS: POLYETHYLENE GLYCOL 3350 17 GM POWD.PACK PO SCH ×2 (08:09→08:14)
[2016-09-21] MEDS: INSULIN LISPRO (humaLOG) 300 UNIT/3 ML VIAL SQ SCH ×2 (08:09→12:38)
[2016-09-21] MEDS: PANTOPRAZOLE 40 MG TABLET PO SCH (08:09)
[2016-09-21] MEDS: HEPARIN SODIUM,PORCINE 5,000 UNIT/ML 1 ML VIAL SQ SCH (08:09)
[2016-09-21] MEDS: ATORVASTATIN 20 MG TAB PO SCH (08:09)
--- NOTE | 2016-09-21 08:27 | PN ---
DATE OF SERVICE: 09/20/16 REASON FOR FOLLOW UP: Pneumonia and ( ) positive blood culture. INTERVAL HISTORY: The patient is afebrile. She is breathing comfortably. Denies any significant chest pain. Occasional cough. Not productive. No nausea or vomiting. No abdominal pain. No diarrhea. On examination, blood pressure 132/69, pulse 85, temperature 97.8, she is 93% on room air. General description revealed an elderly female, lying in the bed, in no distress. Respiratory: Unlabored breathing. Decreased breath sounds in the bases. No wheeze. Heart: S1, S2 regular rate and rhythm. Abdomen soft, no tenderness. Labs: Hemoglobin 8.7, white count 10.5. BUN 25, creatinine 0.80. Follow up blood cultures have been negative. DIAGNOSTIC IMPRESSION AND PLAN: 1. Patient with positive blood cultures, streptococcus ( ) likely ( ) follow up blood culture to be negative. The patient has no clinical ( ) to go along with it. 2. The patient with pneumonia, likely acquired ( ) with left sided pneumonia, community acquired. Sputum usual respiratory aida. Antibiotic will be switched to Levaquin which she will continue for at least 10 days to 2 weeks to finish antibiotic therapy. Continue supportive care. ANEESH
[2016-09-21 12:37] LABS: Glucose,Whole Blood 110 mg/dL (75-99)
[2016-09-21] MEDS: LEVOFLOXACIN 750 MG TAB PO SCH (12:39)
[2016-09-21 13:19] VITALS: BMI 30.4
--- NOTE | 2016-09-21 15:03 | P.DS ---
Providers Date of admission: 09/15/16 08:06 Expected date of discharge: 09/21/16 Attending physician: Jordin Ling Consults: 09/15/16 08:06 Consult Physician Routine Consulting Provider: Cele Winn Consult Reason/Comments: your patient Do you want consulting provider notified?: Yes 09/19/16 11:17 Consult Physician Routine Consulting Provider: Conor Nelson Consult Reason/Comments: pneumonia, staph sepsis Do you want consulting provider notified?: Yes Primary care physician: Cele Winn Hospital Course: Final Diagnoses: #1 bilateral pneumonia: Most probably pneumococcal pneumonia, community- acquired. positive blood cultures with staph hominis which is a contamination. #2 acute hypoxic respiratory failure secondary to the above #2 gastroesophageal reflux disease #3 hypertension #4 coronary artery disease #5 osteoarthritis. 6 mild senile dementia. #7 hypokalemia potassium will be supplemented. #8 COPD with without significant exacerbation #9 left hypoechoic kidney lesion MRI is negative for any cancerous lesions appear to be simple cyst on MRI. Hospital course:Patient is a 81-year-old female admitted with multilobar pneumonia and severe sepsis. Sputum with usual respiratory aida.MRi of the kidney because of a masslike lesion in the left kidney. Patient was also transferred into the ICU related to increased labored breathing and for closer monitoring. CT scan of the chest negative for pulmonary embolism, reported bilateral areas of consolidation worse in the left lower lobe and lingula, masslike consolidation present in the left lower lobe and also reported left kidney lesion. MRI of left kidney reported cortical cyst. Evaluated by pulmonary and infectious disease. Maintained on IV antibiotics of Rocephin and Zithromax as per infectious disease. Significant clinical improvement. Patient has been cleared for discharge by both consults. Patient is being discharged to [facility] in a stable condition with guarded prognosis. Microbiology 09/17/16 11:22 Blood Blood Culture - Preliminary No Growth after 96 hours 09/18/16 04:52 Blood Blood Culture - Preliminary No Growth after 72 hours 09/17/16 12:10 Sputum Gram Stain - Final 09/17/16 12:10 Sputum Sputum Culture - Final 09/15/16 06:15 Blood Blood Culture Gram Stain - Final 09/15/16 06:15 Blood Blood Culture - Final Staph hominis sub sp. hominis 09/15/16 06:15 Blood Blood Culture - Final The impression and plan of care has been dictated as directed as a scribe. : I performed a H&P examination of this patient and discussed the same with the dictator. I agree with the dictator's note. Any additional findings/opinions/ etc. will be noted. Patient Condition at Discharge: Stable Plan - Discharge Summary New Discharge Prescriptions: New Ipratropium Nebulized [Atrovent Nebulized] 0.5 mg INHALATION RT-QID neb Levalbuterol Nebulized (Conc) [Xopenex Nebulized (Conc)] 1.25 mg INHALATION RT-QID ml Levofloxacin [Levaquin] 750 mg PO Q24H #10 tab Metoprolol Tartrate [Lopressor] 12.5 mg PO BID tab Continue Nitroglycerin Sl Tabs [Nitrostat] 0.4 mg SL DIRECTED PRN PRN Reason: Chest Pain Aspirin 81 mg PO DAILY Furosemide [Lasix] 40 mg PO DAILY Levalbuterol Hfa Inhaler [Xopenex Hfa Inhaler] 2 puff INHALATION QID PRN PRN Reason: Dyspnea Omeprazole [PriLOSEC] 20 mg PO DAILY Atorvastatin [Lipitor] 20 mg PO DAILY Calcium Carbonate [Calcium] 600 mg PO DAILY Discontinued Albuterol Nebulized [Ventolin Nebulized] 2.5 mg INHALATION RT-QID Discharge Medication List Aspirin 81 mg PO DAILY 08/06/13 [History] Furosemide [Lasix] 40 mg PO DAILY 08/06/13 [History] Levalbuterol Hfa Inhaler [Xopenex Hfa Inhaler] 2 puff INHALATION QID PRN [History] Nitroglycerin Sl Tabs [Nitrostat] 0.4 mg SL DIRECTED PRN 08/06/13 [History] Omeprazole [PriLOSEC] 20 mg PO DAILY 08/06/13 [History] Atorvastatin [Lipitor] 20 mg PO DAILY 09/15/16 [History] Calcium Carbonate [Calcium] 600 mg PO DAILY 09/15/16 [History] Ipratropium Nebulized [Atrovent Nebulized] 0.5 mg INHALATION RT-QID neb [Rx] Levalbuterol Nebulized (Conc) [Xopenex Nebulized (Conc)] 1.25 mg INHALATION RT- QID ml 09/21/16 [Rx] Levofloxacin [Levaquin] 750 mg PO Q24H #10 tab 09/21/16 [Rx] Metoprolol Tartrate [Lopressor] 12.5 mg PO BID tab 09/21/16 [Rx] Follow up Appointment(s)/Referral(s): Cele Winn MD [Primary Care Provider] - 10/15/16 10:30 am Patient Instructions/Handouts: Levofloxacin (By mouth), Pneumonia (DC) Activity/Diet/Wound Care/Special Instructions: TAMMY inhibitor currently on hold related to borderline hypotension, reevaluate outpatient CBC,BMP in 3 days Discharge Disposition: TRANSFER TO SNF/ECF
[2016-09-21 15:16] VITALS: BP 130/73; PULSE 91; RESP 16; TEMP 97.5
--- NOTE | 2016-09-21 16:13 | P.PN ---
Subjective Date of service 09/20/2016 Progress note being dictated for Dr. Ling. Interval history:Patient is a 81-year-old female admitted with multilobar pneumonia and severe sepsis. Transferred out of ICU yesterday, currently on telemetry unit. Maintained on IV antibiotics of Rocephin and Zithromax as per infectious disease. Chest x-ray noted. Continues on nebulized bronchodilators. Breathing improving, occasional nonproductive cough. Afebrile. Denies chest pain, palpitations or increased shortness of breath. Good diet intake, denies nausea vomiting or diarrhea. Objective - Vital Signs Vital signs: Vital Signs Temp 98.5 F 09/20/16 11:59 Pulse 90 09/20/16 16:11 Resp 18 09/20/16 11:59 BP 120/68 09/20/16 11:59 Pulse Ox 97 09/20/16 11:59 Intake & Output 09/19/16 09/20/16 09/20/16 18:59 06:59 18:59 Intake Total 570 1014 Output Total 300 300 Balance 270 -300 1014 Weight 75.7 kg Intake: IV 450 90 0.9 at KVO 100 40 Vancomycin 1,250 mg In 250 Sodium Chloride 0.9% 250 ml @ 125 mls/hr IVPB DAILY [facility] Rx#:[id number] cefTRIAXone 1,000 mg In 100 50 Sodium Chloride 0.9% 50 ml @ 100 mls/hr IVPB Q24H [facility] Rx#:[id number] Oral 120 924 Output: Urine 300 300 Other: Voiding Method Toilet Toilet Toilet Bedside Commode Bedside Commode Bedside Commode # Voids 1 2 - Exam GENERAL: Sitting up in chair, alert and oriented x3, no acute distress. Well developed, well nourished. HEENT: Pupils are round and equally reacting to light. EOMI. No scleral icterus. No conjunctival pallor. Normocephalic, atraumatic. No pharyngeal erythema. No thyromegaly. CARDIOVASCULAR: S1 and S2 present. No murmurs, rubs, or gallops. PULMONARY: Chest is clear to auscultation, no wheezing, fine left crackles. ABDOMEN: Soft, nontender, nondistended, normoactive bowel sounds. No palpable organomegaly. MUSCULOSKELETAL: No joint swelling or deformity. EXTREMITIES: No cyanosis, clubbing; mild pedal edema. NEUROLOGICAL: Gross neurological examination did not reveal any focal deficits. SKIN: No rashes. Microbiology 09/17/16 11:22 Blood Blood Culture - Preliminary No Growth after 96 hours 09/18/16 04:52 Blood Blood Culture - Preliminary No Growth after 72 hours 09/17/16 12:10 Sputum Gram Stain - Final 09/17/16 12:10 Sputum Sputum Culture - Final 09/15/16 06:15 Blood Blood Culture Gram Stain - Final 09/15/16 06:15 Blood Blood Culture - Final Staph hominis sub sp. hominis 09/15/16 06:15 Blood Blood Culture - Final - Labs CBC & Chem 7: 09/20/16 05:39 09/20/16 05:36 Labs: Abnormal Lab Results - Last 24 Hours (Table) 09/19/16 09/20/16 09/20/16 Range/Units 21:21 05:36 05:39 RBC 3.25 L (3.80-5.40) m/uL Hgb 8.7 L (11.4-16.0) gm/dL Hct 27.6 L (34.0-46.0) % Neutrophils # 9.6 H (1.3-7.7) k/uL Lymphocytes # 0.6 L (1.0-4.8) k/uL Chloride 108 H (98-107) mmol/L BUN 25 H (7-17) mg/dL Glucose 148 H (74-99) mg/dL POC Glucose (mg/dL) 232 H (75-99) mg/dL 09/20/16 09/20/16 09/20/16 Range/Units 06:11 11:32 16:33 RBC (3.80-5.40) m/uL Hgb (11.4-16.0) gm/dL Hct (34.0-46.0) % Neutrophils # (1.3-7.7) k/uL Lymphocytes # (1.0-4.8) k/uL Chloride (98-107) mmol/L BUN (7-17) mg/dL Glucose (74-99) mg/dL POC Glucose (mg/dL) 166 H 156 H 192 H (75-99) mg/dL Microbiology - Last 24 Hours (Table) 09/17/16 11:22 Blood Culture - Preliminary Blood No Growth after 72 hours 09/18/16 04:52 Blood Culture - Preliminary Blood No Growth after 48 hours Assessment and Plan Plan: 1 bilateral pneumonia: Most probably pneumococcal pneumonia, community- acquired. positive blood cultures with staph hominis which is a contamination. #2 acute hypoxic respiratory failure secondary to the above #2 gastroesophageal reflux disease #3 hypertension #4 coronary artery disease #5 osteoarthritis. 6 mild senile dementia. #7 hypokalemia potassium will be supplemented. #8 COPD with without significant exacerbation #9 left hypoechoic kidney lesion MRI is negative for any cancerous lesions appear to be simple cyst on MRI. Plan: Continue on current medication regime, nebulized bronchodilators , steroid taper, monitoring and symptomatic treatment. Transfer to [facility] unit. Staff to obtain O2 sat on room air after ambulation for discharge planning .Discharge planning in progress for tomorrow pending pulmonary and infectious disease clearance. Further recommendations to follow. The impression and plan of care has been dictated as directed. : I performed a H&P examination of this patient and discussed the same with the dictator. I agree with the dictator's note. Any additional findings/opinions/ etc. will be noted.
--- NOTE | 2016-09-21 16:30 | P.PN ---
Subjective 81-year-old female patient, presented with progressive increase in shortness of breath over the past 3 days. The patient was having low-grade fever, chills, chest congestion, and she was feeling extremely tired and weak to the point where she collapsed and she had an episode of fall while trying to get up. For that reason she presented to the hospital and further investigation showed that the patient is an extensive right lung pneumonia. A CAT scan of the chest was done and showed no evidence of any pulmonary embolism. There was bilateral areas of consolidation worse in the left lower lobe and lingula. A masslike consolidation present in the left lower lobe. This is typical of an underlying pneumonia. The patient remained hemodynamically stable. No change in mental status. No hemoptysis. No pleurisy. She has been started on a combination of Rocephin and Zithromax. A left kidney lesion was also seen and a ultrasound of the kidneys was done and it showed indeterminate hypoechoic areas within both kidneys and the left knee lesion seemed to be solid in appearance and further CAT scan at the kidneys was recommended. The patient is seen again today 09/16/2016 in follow-up on the regular medical floor. She was seen and evaluated yesterday by Dr. Winn though his dictation was today. A masslike consolidation was present in the left lower lobe suspicious for underlying pneumonia. The CAT scan also revealed left kidney lesion that was solid in appearance. He ordered a MRI of the kidney today. Presently, the patient is resting quite comfortably in bed. She denies any worsening shortness of breath, cough or congestion. Preliminary blood culture reveals gram-positive cocci in clusters. She has been initiated on vancomycin and continues on ceftriaxone and azithromycin. She denies any worsening shortness of breath cough or congestion. She is maintaining good O2 saturations in the high 90s on 2 L/m per nasal cannula. She's been afebrile. Hemodynamically stable. On 09/17/2016 the patient is being seen in follow-up. As mentioned earlier, the patient came in for a COPD exacerbation and left lower lobe pneumonia. She was found to be more labored breathing on today's evaluation. She was more tachypneic. Despite that she was still on 2 L of oxygen nasal cannula. An immediate chest x-ray was done that showed persistent infiltration of the left lower lobe. Segmental and subsegmental changes in the right lung base related to atelectasis. Meanwhile the patient remains on a combination of Rocephin, Zithromax and vancomycin. The preliminary blood cultures showing gram-positive cocci and we're awaiting final cultures and identifications. Meanwhile, the patient completed an MRI/of the kidneys and the lesion of concern in the upper lobe of the left kidney turn operator to be a cortical cyst than a renal mass. She was reassured in that regard. Nevertheless, the main concern remains her worsening shortness of breath. She is still being treated for an ongoing pneumonia. Admit recommendations to chest this patient to the intensive care for closer monitoring and possible BiPAP use if needed. On 09/18/2016 the patient is being seen in follow-up in the intensive care unit. She is less short of breath compared to yesterday. She got moved to the ICU because of increased labored breathing. She was kept on the same antibiotic regimen included a combination of Rocephin and Zithromax and vancomycin. The blood cultures still not resulted however there is a gram- positive cocci in groups. The chest x-ray from today showing improvement in left lower lobe consolidation. The patient is hemodynamically stable. She is producing adequate amount of urine output. On her cardiac rhythm she is having frequent PACs. Her potassium level is borderline low. She is not having any nausea or vomiting or any change in mental status. On 09/19/2016 I'm seeing this patient in follow-up in the intensive care unit regarding her extensive left lung pneumonia. The blood culture has resulted in to staph hominis and the patient remains on a combination of Rocephin, Zithromax , and IV vancomycin. Her chest x-ray showing improvement in the left lower lobe pulmonary infiltrate. Clinically she is improved. She is breathing easier. Not coughing much of sputum. Afebrile. Hemodynamically stable. Not requiring any BiPAP or any other form of respiratory support at this point. Adequate urine output. She is getting up back and forth a bedside chair. Potassium level has been replaced and it's up to 4. The cardiac rhythm was done yesterday and results are still still pending. Meanwhile the patient's cardiac rhythm is sinus and she is having occasional PVCs. On 09/20/2016 the patient is being seen in follow-up in the medical floor. She got moved out of the intensive care unit yesterday. She is sitting up on a chair. She is calm and comfortable. No significant Mr. distress at rest. No significant cough or sputum production. No pleurisy. No hemoptysis. Still on a combination of Rocephin and Zithromax and vancomycin. ID saw the patient. Based on her opinion the staph in the blood is likely a contaminant and this is a staph hominis species. The patient is afebrile. The patient is not having any cardiac arrhythmias. The patient had an echocardiogram that showed preserved LV function. The patient is on Xopenex and Atrovent about treatments around the clock. The patient is also is on IV Solu-Medrol. Chest x-ray from today is still showing residual inflammatory changes/consolidation of the left lung. Clinically however the patient is much improved. The patient is seen again today 09/21/2016 in follow-up on the regular medical floor. She is awake and alert in no acute distress. She denies any worsening shortness of breath, cough or congestion. She is breathing easier today as compared to yesterday. She is maintaining O2 saturations in the low 90s on room air. Afebrile. Follow-up blood cultures revealed no growth after 72 hours. Sputum culture revealed no growth. Objective - Vital Signs Vital signs: Vital Signs Temp 97.5 F L 09/21/16 15:00 Pulse 91 09/21/16 15:00 Resp 16 09/21/16 15:00 BP 130/73 09/21/16 15:00 Pulse Ox 91 L 09/21/16 15:00 Intake & Output 09/20/16 09/21/16 09/21/16 18:59 06:59 18:59 Intake Total 1254 240 Balance 1254 240 Weight 75.5 kg 75.5 kg Intake: IV 90 0.9 at KVO 40 cefTRIAXone 1,000 mg In 50 Sodium Chloride 0.9% 50 ml @ 100 mls/hr IVPB Q24H [facility] Rx#:[id number] Oral 1164 240 Other: Voiding Method Toilet Toilet Toilet Bedside Commode Bedside Commode Bedside Commode # Voids 2 3 3 - Exam Head exam was generally normal. There was no scleral icterus or corneal arcus. Mucous membranes were moist.Neck was supple and without jugular venous distension, thyromegaly, or carotid bruits. Carotids were easily palpable bilaterally. There was no adenopathy. Lung sounds are diminished bilaterally and crackles aren't appreciated in the left lung base.Cardiac exam revealed the PMI to be normally situated and sized. The rhythm was regular and no extrasystoles were noted during several minutes of auscultation. The first and second heart sounds were normal and physiologic splitting of the second heart sound was noted. There were no murmurs, rubs, clicks, or gallops.Abdominal exam revealed normal bowel sounds. The abdomen was soft, non-tender, and without masses, organomegaly, or appreciable enlargement of the abdominal aorta.Examination of the extremities revealed easily palpable radial, femoral and pedal pulses. There was no cyanosis, clubbing or edema. - Labs CBC & Chem 7: 09/20/16 05:39 09/20/16 05:36 Labs: Abnormal Lab Results - Last 24 Hours (Table) 09/20/16 09/20/16 09/21/16 Range/Units 16:33 21:35 06:54 POC Glucose (mg/dL) 192 H 141 H 136 H (75-99) mg/dL 09/21/16 Range/Units 12:03 POC Glucose (mg/dL) 110 H (75-99) mg/dL Microbiology - Last 24 Hours (Table) 09/17/16 11:22 Blood Culture - Preliminary Blood No Growth after 96 hours 09/18/16 04:52 Blood Culture - Preliminary Blood No Growth after 72 hours Assessment and Plan Plan: Assessment 1 multilobar pneumonia with masslike consolidation involving the left lung/ lingular segment of the left lower lobe, recovered 2 acute hypoxic respiratory failure secondary to above 3 acute dyspnea secondary to above 4 COPD moderate to severe with a baseline FEV1 of 66% of predicted 5 coronary artery disease with previous coronary intervention and stenting and previous bypass surgery 6 hypertension 7 hyperlipidemia 8 history of shingles 9 history of skin cancer 10 history of anxiety/depression 11 osteoporosis/osteoarthritis 12 gout 13 left indeterminate hypoechogenic kidney lesion that needs further investigation Plan: The patient was seen and evaluated by Dr. Winn. She is cleared for discharge to an extended care facility for further inpatient rehabilitation from the pulmonary standpoint. She will continue Pletal her course of antibiotics. Continue with bronchodilators. Follow-up in the office 1-2 weeks ' time. We'll repeat a chest x-ray then. The patient and her daughters 3 were at the bedside are agreeable to the plan. They will call sooner with any recurrence of symptoms or other questions or concerns.
--- NOTE | 2016-09-21 18:20 | PN ---
DATE OF SERVICE: 09/21/2016 REASON FOR EVALUATION: 1. Positive blood culture. 2. Pneumonia. INTERVAL HISTORY: The patient is afebrile. She is feeling better. Breathing more comfortably. She did have a cough, but not brining up any sputum. No chest pain, no abdominal pain, no nausea, vomiting or any diarrhea. On examination: Blood pressure is 124/58 with pulse of 75, temperature 97.3. She is 94% on room air. General description is an elderly female lying in bed in no distress. RESPIRATORY: Unlabored breathing. Clear to auscultation anteriorly. HEART: S1, S2 regular rate and rhythm. ABDOMEN: Soft, no tenderness. LABS: No new labs have been obtained today. DIAGNOSTIC IMPRESSION AND PLAN: 1. Patient with positive blood culture ( ) likely skin contamination. No need for further workup for the same. 2. Patient with pneumonia, community acquired, negative for resistant pathogens. Currently on Levaquin, which will continue for another 10 days to finish course of therapy. Plan of care discussed with the family as well the attending physician. ANEESH
[2016-09-23] MEDS ORDERED: LEVOFLOXACIN 750 MG TAB PO SCH (09:00)
== END 2016-09-21 16:10 | disposition home health service (06) | DRG 871 ==
LOC: EC 05:52 → 4MS4W 08:06 → 6ICU 09-17 15:09 → 6SEL 09-19 13:23 → 5MS5E 09-20 20:44
PROVIDERS: ADMIT Hospitalist; ATTEND Hospitalist
DX: A41.9 Sepsis, unspecified organism (principal); J96.01 Acute respiratory failure with hypoxia; J44.0 Chronic obstructive pulmonary disease with (acute) lower respiratory infection; Q61.9 Cystic kidney disease, unspecified; J44.1 Chronic obstructive pulmonary disease with (acute) exacerbation; I50.9 Heart failure, unspecified; I11.0 Hypertensive heart disease with heart failure; F03.90 Unspecified dementia, unspecified severity, without behavioral disturbance, psychotic disturbance, mood disturbance, and anxiety; A41.2 Sepsis due to unspecified staphylococcus; I27.2 Other secondary pulmonary hypertension; D64.9 Anemia, unspecified; E78.5 Hyperlipidemia, unspecified; E87.6 Hypokalemia; I25.10 Atherosclerotic heart disease of native coronary artery without angina pectoris; I25.2 Old myocardial infarction; I49.3 Ventricular premature depolarization; K21.9 Gastro-esophageal reflux disease without esophagitis; M10.9 Gout, unspecified; M19.90 Unspecified osteoarthritis, unspecified site; M81.0 Age-related osteoporosis without current pathological fracture; N28.89 Other specified disorders of kidney and ureter; R65.20 Severe sepsis without septic shock; Z79.82 Long term (current) use of aspirin; Z79.899 Other long term (current) drug therapy; Z80.51 Family history of malignant neoplasm of kidney; Z80.8 Family history of malignant neoplasm of other organs or systems; Z85.828 Personal history of other malignant neoplasm of skin; Z86.19 Personal history of other infectious and parasitic diseases; Z87.440 Personal history of urinary (tract) infections; Z87.891 Personal history of nicotine dependence; Z95.1 Presence of aortocoronary bypass graft; Z95.5 Presence of coronary angioplasty implant and graft; Z88.5 Allergy status to narcotic agent
CPT/HCPCS: 36415; 71010; 71275; 74183; 76770; 80048; 80053; 80202; 82550; 82553; 83605; 83735; 83880; 84100; 84132; 84484; 85025; 85379; 85610; 85730; 87040; 87070; 87077; 87186; 87205; 93005; 93306; 94640; 94760; 96374; 99285

== ENCOUNTER → 2016-10-13 | Outpatient (CLI) | payer MEDICARE, OTHER ==
[2016-10-13 10:11] LABS: Anion Gap 11 mmol/L; Blood Urea Nitrogen 18 mg/dL (7-17); Calcium 9.6 mg/dL (8.4-10.2); Carbon Dioxide 27 mmol/L (22-30); Chloride 100 mmol/L (98-107); Creatine Kinase 58 U/L (30-135); Glucose 112 mg/dL (74-99); Non-African American GFR(MDRD) 55 (>60 ml/min/1.73 sqM); Sodium 138 mmol/L (137-145)
== END | disposition home or self-care (01) ==
LOC: LABWHC1 09:31
PROVIDERS: ATTEND Internal Medicine Critical Care Medicine
DX: J18.1 Lobar pneumonia, unspecified organism (principal)
CPT/HCPCS: 36415; 71020; 80048; 82550; 99214

== ENCOUNTER 2017-05-16 14:37 | Emergency (ER) | payer MEDICARE, OTHER ==
[2017-05-16 14:44] VITALS: BP 139/76; PULSE 79; RESP 17; TEMP 98.1
[2017-05-16 15:12] LABS: Anisocytosis Slight; Basophils # (A) 0.1 k/uL (0-0.2); Basophils % (A) 1 %; Eosinophils # (A) 0.2 k/uL (0-0.7); Eosinophils % (A) 2 %; HCT 28.2 % (34.0-46.0); HGB 8.7 gm/dL (11.4-16.0); Hypochromasia Moderate; Lymphocytes # (A) 1.6 k/uL (1.0-4.8); Lymphocytes % (A) 16 %; MCH 21.6 pg (25.0-35.0); MCHC 30.9 g/dL (31.0-37.0); MCV 69.9 fL (80.0-100.0); Mean Platelet Volume 7.1; Microcytosis Marked; Monocytes # (A) 0.5 k/uL (0-1.0); Monocytes % (A) 6 %; Neutrophils # (A) 7.2 k/uL (1.3-7.7); Neutrophils % (A) 74 %; Platelet Count 399 k/uL (150-450); RBC 4.03 m/uL (3.80-5.40); RDW 16.1 % (11.5-15.5); WBC 9.8 k/uL (3.8-10.6)
[2017-05-16 15:21] LABS: Albumin 3.8 g/dL (3.5-5.0); Calcium 9.7 mg/dL (8.4-10.2); Potassium 4.5 mmol/L (3.5-5.1); Total Bilirubin 0.3 mg/dL (0.2-1.3); Total Protein 6.8 g/dL (6.3-8.2)
[2017-05-16] MEDS ORDERED: RX INFO: IV CONTRAST WAS GIVEN 1 EACH MISC MISCELLANE PRN (15:35)
--- NOTE | 2017-05-16 15:43 | ED ---
Abdominal Pain HPI - General Chief Complaint: Abdominal Pain Stated Complaint: abdominal pain-sent by walk in clinic Time Seen by Provider: 05/16/17 15:24 Source: patient, RN notes reviewed, old records reviewed Mode of arrival: ambulatory Limitations: no limitations - History of Present Illness Initial Comments: This patient is a pleasant 82-year-old female presents today chief complaint of 3 days of right-sided abdominal pain. Just reports it started Tuesday. She states that she has had no nausea or vomiting. She developed a normal bowel movement yesterday. She states that she thought she had a urinary tract infection. She went to [facility] then sent her here for further evaluation. She had a normal urine there. Patient states that she has had no blood in her stools. No blood and recent emesis. She denies any chest pain, shortness of breath. No recent falls. She states that she has had a history of cholecystectomy, appendectomy. She does have all of her reproductive organs. Patient states that she has no lower extremity swelling. Surgical history also includes CABG. - Related Data Home Medications Medication Instructions Recorded Confirmed Aspirin 81 mg PO DAILY 08/06/13 05/16/17 Levalbuterol Hfa Inhaler [Xopenex 2 puff INHALATION RT-TID PRN 08/06/13 05/16/17 Hfa Inhaler] Atorvastatin [Lipitor] 20 mg PO HS 09/15/16 05/16/17 Calcium Carbonate/Vitamin D3 1 tab PO DAILY 05/16/17 05/16/17 [Calcium 500-Vit D3 200 Tablet] Furosemide [Lasix] 40 mg PO DAILY 05/16/17 05/16/17 Levalbuterol Nebulized [Xopenex 1.25 mg INHALATION RT-BID 05/16/17 05/16/17 Nebulized] Lisinopril [Zestril] 10 mg PO DAILY 05/16/17 05/16/17 Lutein 10 mg PO HS 05/16/17 05/16/17 Allergies Allergy/AdvReac Type Severity Reaction Status Date / Time codeine Allergy Unknown Verified 05/16/17 15:55 Review of Systems ROS Statement: Those systems with pertinent positive or pertinent negative responses have been documented in the HPI. ROS Other: All systems not noted in ROS Statement are negative. Past Medical History Past Medical History: Coronary Artery Disease (CAD), Cancer, COPD, GERD/Reflux, Hyperlipidemia, Hypertension, Myocardial Infarction ([place]), Osteoarthritis (OA) Additional Past Medical History / Comment(s): COPD with a baseline FEV1 of 66% of predicted, coronary artery disease with previous insertion of a coronary stent, hypertension, hyperlipidemia, previous history of urinary tract infections including infection with enterococcus, osteoporosis, osteoarthritis, spinal stenosis, gout, history of onychomycosis, cataracts, shingles in 2014, skin cancer Last Myocardial Infarction Date:: 2003 History of Any Multi-Drug Resistant Organisms: None Reported Past Surgical History: Appendectomy, Cholecystectomy, Coronary Bypass/CABG, Heart Catheterization With Stent, Tubal Ligation Additional Past Surgical History / Comment(s): PCI WITH STENTS (?TOTAL OF 4), 2003 CABG, SKIN CANCER REMOVALS, D&C, COLONOSCOPIES WITH BENIGN POLYPECTOMIES. Past Anesthesia/Blood Transfusion Reactions: No Reported Reaction Date of Last Stent Placement:: 2003 Past Psychological History: Anxiety, Depression Smoking Status: Former smoker Past Alcohol Use History: None Reported Past Drug Use History: None Reported - Past Family History Mother Family Medical History: Cancer Additional Family Medical History / Comment(s): MOTHER HAD KIDNEY CANCER. SHE OF A RUPTURED BRAIN ANEURYSM AT THE AGE OF 71 YRS. Father History Unknown: Yes Brother(s) Family Medical History: Cancer Additional Family Medical History / Comment(s): THROAT CANCER. General Exam - General Exam Comments Initial Comments: This is a pleasant 82 year old female, no distress. Limitations: no limitations General appearance: alert, in no apparent distress Head exam: Present: atraumatic, normocephalic, normal inspection Eye exam: Present: normal appearance, PERRL, EOMI. Absent: scleral icterus, conjunctival injection, periorbital swelling ENT exam: Present: normal exam, mucous membranes moist Neck exam: Present: normal inspection. Absent: tenderness, meningismus, lymphadenopathy Respiratory exam: Present: normal lung sounds bilaterally. Absent: respiratory distress, wheezes, rales, rhonchi, stridor Cardiovascular Exam: Present: regular rate, normal rhythm, normal heart sounds. Absent: systolic murmur, diastolic murmur, rubs, gallop, clicks GI/Abdominal exam: Present: soft, tenderness (over RUQ and LUQ, and RLQ. She is belching. ), normal bowel sounds. Absent: distended, guarding, rebound, rigid Extremities exam: Present: normal inspection, full ROM, normal capillary refill. Absent: tenderness, pedal edema, joint swelling, calf tenderness Back exam: Present: normal inspection Neurological exam: Present: alert, oriented X3, CN II-XII intact Psychiatric exam: Present: normal affect, normal mood Skin exam: Present: warm, dry, intact, normal color. Absent: rash Course Vital Signs 05/16/17 14:40 Temperature 98.1 F Pulse Rate 79 Respiratory 17 Rate Blood Pressure 139/76 O2 Sat by Pulse 100 Oximetry Medical Decision Making - Medical Decision Making 82-year-old female to complain of right upper quadrant and right mid abdominal pain for the past 3 days. Patient's labwork was reviewed and all normal. Hemoglobin was slightly low at 8.7, however this is stable from last August. Urinalysis shows some mild bacteria. Urine culture obtained. Chest x-ray was reviewed and shows no acute process. CT shows evidence of enlarged lymphnodes around RLQ. Suggestion of colonoscopy. Patient informed to follow up with PCP about CT findings and to return to ED if any alarming signs or symptoms occur. She did not want any pain medicatoin and promises to follow up. Return parameters discussed. - Lab Data Result diagrams: 05/16/17 14:55 05/16/17 14:55 Lab Results 05/16/17 05/16/17 05/16/17 Range/Units 14:55 14:55 14:55 WBC 9.8 (3.8-10.6) k/uL RBC 4.03 (3.80-5.40) m/uL Hgb 8.7 L (11.4-16.0) gm/dL Hct 28.2 L (34.0-46.0) % MCV 69.9 L (80.0-100.0) fL MCH 21.6 L (25.0-35.0) pg MCHC 30.9 L (31.0-37.0) g/dL RDW 16.1 H (11.5-15.5) % Plt Count 399 (150-450) k/uL Neutrophils % 74 % Lymphocytes % 16 % Monocytes % 6 % Eosinophils % 2 % Basophils % 1 % Neutrophils # 7.2 (1.3-7.7) k/uL Lymphocytes # 1.6 (1.0-4.8) k/uL Monocytes # 0.5 (0-1.0) k/uL Eosinophils # 0.2 (0-0.7) k/uL Basophils # 0.1 (0-0.2) k/uL Hypochromasia Moderate Anisocytosis Slight Microcytosis Marked PT (9.0-12.0) sec INR (<1.2) APTT (22.0-30.0) sec Sodium 138 (137-145) mmol/L Potassium 4.5 (3.5-5.1) mmol/L Chloride 99 (98-107) mmol/L Carbon Dioxide 28 (22-30) mmol/L Anion Gap 11 mmol/L BUN 22 H (7-17) mg/dL Creatinine 1.00 (0.52-1.04) mg/dL Est GFR (CKD-EPI)AfAm 60 (>60 ml/min/1.73 sqM) Est GFR (CKD-EPI)NonAf 52 (>60 ml/min/1.73 sqM) Glucose 101 H (74-99) mg/dL Plasma Lactic Acid Emanuel 1.3 (0.7-2.0) mmol/L Calcium 9.7 (8.4-10.2) mg/dL Total Bilirubin 0.3 (0.2-1.3) mg/dL AST 19 (14-36) U/L ALT 18 (9-52) U/L Alkaline Phosphatase 54 (38-126) U/L Troponin I (0.000-0.034) ng/mL Total Protein 6.8 (6.3-8.2) g/dL Albumin 3.8 (3.5-5.0) g/dL Amylase 68 (30-110) U/L Lipase 167 (23-300) U/L Urine Color Urine Appearance (Clear) Urine pH (5.0-8.0) Ur Specific [place] (1.001-1.035) Urine Protein (Negative) Urine Glucose (UA) (Negative) Urine Ketones (Negative) Urine Blood (Negative) Urine Nitrite (Negative) Urine Bilirubin (Negative) Urine Urobilinogen (<2.0) mg/dL Ur Leukocyte Esterase (Negative) Urine RBC (0-5) /hpf Urine WBC (0-5) /hpf Urine Bacteria (None) /hpf Stool Occult Blood (Negative) 05/16/17 05/16/17 05/16/17 Range/Units 14:55 14:55 16:50 WBC (3.8-10.6) k/uL RBC (3.80-5.40) m/uL Hgb (11.4-16.0) gm/dL Hct (34.0-46.0) % MCV (80.0-100.0) fL MCH (25.0-35.0) pg MCHC (31.0-37.0) g/dL RDW (11.5-15.5) % Plt Count (150-450) k/uL Neutrophils % % Lymphocytes % % Monocytes % % Eosinophils % % Basophils % % Neutrophils # (1.3-7.7) k/uL Lymphocytes # (1.0-4.8) k/uL Monocytes # (0-1.0) k/uL Eosinophils # (0-0.7) k/uL Basophils # (0-0.2) k/uL Hypochromasia Anisocytosis Microcytosis PT 9.8 (9.0-12.0) sec INR 1.0 (<1.2) APTT 22.6 (22.0-30.0) sec Sodium (137-145) mmol/L Potassium (3.5-5.1) mmol/L Chloride (98-107) mmol/L Carbon Dioxide (22-30) mmol/L Anion Gap mmol/L BUN (7-17) mg/dL Creatinine (0.52-1.04) mg/dL Est GFR (CKD-EPI)AfAm (>60 ml/min/1.73 sqM) Est GFR (CKD-EPI)NonAf (>60 ml/min/1.73 sqM) Glucose (74-99) mg/dL Plasma Lactic Acid Emanuel (0.7-2.0) mmol/L Calcium (8.4-10.2) mg/dL Total Bilirubin (0.2-1.3) mg/dL AST (14-36) U/L ALT (9-52) U/L Alkaline Phosphatase (38-126) U/L Troponin I <0.012 (0.000-0.034) ng/mL Total Protein (6.3-8.2) g/dL Albumin (3.5-5.0) g/dL Amylase (30-110) U/L Lipase (23-300) U/L Urine Color Light Yellow Urine Appearance Clear (Clear) Urine pH 6.5 (5.0-8.0) Ur Specific [place] 1.003 (1.001-1.035) Urine Protein Negative (Negative) Urine Glucose (UA) Negative (Negative) Urine Ketones Negative (Negative) Urine Blood Negative (Negative) Urine Nitrite Negative (Negative) Urine Bilirubin Negative (Negative) Urine Urobilinogen <2.0 (<2.0) mg/dL Ur Leukocyte Esterase Small H (Negative) Urine RBC <1 (0-5) /hpf Urine WBC 9 H (0-5) /hpf Urine Bacteria Rare H (None) /hpf Stool Occult Blood (Negative) 05/16/17 Range/Units 17:45 WBC (3.8-10.6) k/uL RBC (3.80-5.40) m/uL Hgb (11.4-16.0) gm/dL Hct (34.0-46.0) % MCV (80.0-100.0) fL MCH (25.0-35.0) pg MCHC (31.0-37.0) g/dL RDW (11.5-15.5) % Plt Count (150-450) k/uL Neutrophils % % Lymphocytes % % Monocytes % % Eosinophils % % Basophils % % Neutrophils # (1.3-7.7) k/uL Lymphocytes # (1.0-4.8) k/uL Monocytes # (0-1.0) k/uL Eosinophils # (0-0.7) k/uL Basophils # (0-0.2) k/uL Hypochromasia Anisocytosis Microcytosis PT (9.0-12.0) sec INR (<1.2) APTT (22.0-30.0) sec Sodium (137-145) mmol/L Potassium (3.5-5.1) mmol/L Chloride (98-107) mmol/L Carbon Dioxide (22-30) mmol/L Anion Gap mmol/L BUN (7-17) mg/dL Creatinine (0.52-1.04) mg/dL Est GFR (CKD-EPI)AfAm (>60 ml/min/1.73 sqM) Est GFR (CKD-EPI)NonAf (>60 ml/min/1.73 sqM) Glucose (74-99) mg/dL Plasma Lactic Acid Emanuel (0.7-2.0) mmol/L Calcium (8.4-10.2) mg/dL Total Bilirubin (0.2-1.3) mg/dL AST (14-36) U/L ALT (9-52) U/L Alkaline Phosphatase (38-126) U/L Troponin I (0.000-0.034) ng/mL Total Protein (6.3-8.2) g/dL Albumin (3.5-5.0) g/dL Amylase (30-110) U/L Lipase (23-300) U/L Urine Color Urine Appearance (Clear) Urine pH (5.0-8.0) Ur Specific [place] (1.001-1.035) Urine Protein (Negative) Urine Glucose (UA) (Negative) Urine Ketones (Negative) Urine Blood (Negative) Urine Nitrite (Negative) Urine Bilirubin (Negative) Urine Urobilinogen (<2.0) mg/dL Ur Leukocyte Esterase (Negative) Urine RBC (0-5) /hpf Urine WBC (0-5) /hpf Urine Bacteria (None) /hpf Stool Occult Blood Negative (Negative) - Radiology Data Radiology results: report reviewed Chest x-ray is negative for any acute process. CT abdomen and pelvis shows Geographic zone of enlarged lymph nodes in the right lower quadrant. Follow up imaging suggested. The bowel is unremarkable in of itself. However there are multifocal enlarged right ileocolic lymph nodes measuring up to 2cm. 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 Would suggest colonoscopy or ct colonoscopy characterization of the right colon. Disposition Clinical Impression: RLQ abdominal pain, Lymphadenopathy, abdominal Disposition: HOME SELF-CARE Condition: Good Instructions: Abdominal Pain (ED) Additional Instructions: Patient should follow-up with primary care physician within the next 1-2 days. Computed tomography scan report shows evidence of some lymph nodes in the right lower quadrant. Recommended colonoscopy and other studies for further evaluation. Return to emergency department if any alarming signs or symptoms occur. Referrals: Cele Winn MD [Primary Care Provider] - 1-2 days Time of Disposition: 18:28
[2017-05-16 16:18] LABS: Partial Thromboplastin Time 22.6 sec (22.0-30.0); Prothrombin Time 9.8 sec (9.0-12.0)
[2017-05-16 17:10] LABS: Appearance,Urine Clear (Clear); Bacteria,Urine Rare /hpf; Bilirubin,Urine Negative (Negative); Blood,Urine Negative (Negative); Color,Urine Light Yellow; Glucose,Urine (UA) Negative (Negative); Ketones,Urine Negative (Negative); Leukocyte Esterase,Urine Small (Negative); Nitrite,Urine Negative (Negative); PH, Urine 6.5 (5.0-8.0); Protein,Urine Negative (Negative); RBC,Urine <1 /hpf (0-5); Specific Gravity,Urine 1.003 (1.001-1.035); Urobilinogen,Urine <2.0 mg/dL (<2.0); WBC,Urine 9 /hpf (0-5)
[2017-05-16] MEDS ORDERED: SODIUM CHLORIDE 0.9% 1,000 ML IV ONE (17:39)
[2017-05-16] MEDS ORDERED: MORPHINE SULFATE/PF 10MG/10ML VL IVP ONE (17:40)
[2017-05-16] MEDS ORDERED: SODIUM CHLORIDE 0.9% 1,000 ML IV SCH (17:45)
--- NOTE | 2017-05-16 17:45 | XR ---
EXAMINATION: XR chest 2V DATE AND TIME: 05/16/2017 5:18 PM ORDERING PROVIDER: Claudia Harp CLINICAL INDICATION: Pain TECHNIQUE: PA and lateral COMPARISON: 09/20/2016 DESCRIPTION: The lungs are clear. The pleural spaces are negative. Sternal sutures and mediastinal clips. The cardiac silhouette is mildly enlarged, unchanged. The medi astinal and pleural silhouettes are unremarkable. The skeletal structures are intact without focal findings. The overlying soft tissues are prominent IMPRESSION: NO ACUTE PROCESS.
--- NOTE | 2017-05-16 18:23 | CT ---
EXAMINATION TYPE: CT abdomen pelvis w con DATE OF EXAM: 05/16/2017 COMPARISON: 10/13/2010 CT HISTORY: Abdominal pain. CT DLP: 1336 mGycm Automated exposure control for dose reduction was used. TECHNIQUE: Helical acquisition of images was performed from the lung bases through the pelvis. CONTRAST: Performed without Oral Contrast and with IV Contrast, patient injected with 80 mL of [place] que 320. FINDINGS: LUNG BASES: Lung bases and pleural spaces are unremarkable. Coronary calcifications documented. LIVER/GB: No significant abnormality is appreciated. PANCREAS: No significant abnormality is seen. SPLEEN: No significant abnormality is seen. ADRENALS: No significant abnormality is seen. KIDNEYS: No significant abnormality is seen. BOWEL: The bowel is unremarkable in of itself. However, there are multifocal enlarged right ileocoli c mesocolon lymph nodes, reaching up to 2 cm mean diameter. Most of these measure from 15-[address] H[address] units of the CT attenuation. The cecum is noted to be high riding on a congenital basis. Would sug gest colonoscopy or CT colonoscopy characterization of the right colon. RETROPERITONEAL ADENOPATHY: None visualized REPRODUCTIVE ORGANS: No significant abnormality is seen URINARY BLADDER: No significant abnormality is seen. PELVIC ADENOPATHY: None visualized. OSSEOUS STRUCTURES: No significant abnormality is seen. VASCULATURE: Unremarkable. IMPRESSION: GEOGRAPHIC ZONE OF ENLARGED LYMPH NODES IN THE RIGHT LOWER QUADRANT; FOLLOW-UP IMAGING STUDIES SUGGES MIRIAM.
--- NOTE | 2017-05-17 08:25 | ED ---
Medical Decision Making - Lab Data Result diagrams: 05/16/17 14:55 05/16/17 14:55 Lab Results 05/16/17 05/16/17 05/16/17 Range/Units 14:55 14:55 14:55 WBC 9.8 (3.8-10.6) k/uL RBC 4.03 (3.80-5.40) m/uL Hgb 8.7 L (11.4-16.0) gm/dL Hct 28.2 L (34.0-46.0) % MCV 69.9 L (80.0-100.0) fL MCH 21.6 L (25.0-35.0) pg MCHC 30.9 L (31.0-37.0) g/dL RDW 16.1 H (11.5-15.5) % Plt Count 399 (150-450) k/uL Neutrophils % 74 % Lymphocytes % 16 % Monocytes % 6 % Eosinophils % 2 % Basophils % 1 % Neutrophils # 7.2 (1.3-7.7) k/uL Lymphocytes # 1.6 (1.0-4.8) k/uL Monocytes # 0.5 (0-1.0) k/uL Eosinophils # 0.2 (0-0.7) k/uL Basophils # 0.1 (0-0.2) k/uL Hypochromasia Moderate Anisocytosis Slight Microcytosis Marked PT (9.0-12.0) sec INR (<1.2) APTT (22.0-30.0) sec Sodium 138 (137-145) mmol/L Potassium 4.5 (3.5-5.1) mmol/L Chloride 99 (98-107) mmol/L Carbon Dioxide 28 (22-30) mmol/L Anion Gap 11 mmol/L BUN 22 H (7-17) mg/dL Creatinine 1.00 (0.52-1.04) mg/dL Est GFR (CKD-EPI)AfAm 60 (>60 ml/min/1.73 sqM) Est GFR (CKD-EPI)NonAf 52 (>60 ml/min/1.73 sqM) Glucose 101 H (74-99) mg/dL Plasma Lactic Acid Emanuel 1.3 (0.7-2.0) mmol/L Calcium 9.7 (8.4-10.2) mg/dL Total Bilirubin 0.3 (0.2-1.3) mg/dL AST 19 (14-36) U/L ALT 18 (9-52) U/L Alkaline Phosphatase 54 (38-126) U/L Troponin I (0.000-0.034) ng/mL Total Protein 6.8 (6.3-8.2) g/dL Albumin 3.8 (3.5-5.0) g/dL Amylase 68 (30-110) U/L Lipase 167 (23-300) U/L Urine Color Urine Appearance (Clear) Urine pH (5.0-8.0) Ur Specific [place] (1.001-1.035) Urine Protein (Negative) Urine Glucose (UA) (Negative) Urine Ketones (Negative) Urine Blood (Negative) Urine Nitrite (Negative) Urine Bilirubin (Negative) Urine Urobilinogen (<2.0) mg/dL Ur Leukocyte Esterase (Negative) Urine RBC (0-5) /hpf Urine WBC (0-5) /hpf Urine Bacteria (None) /hpf Stool Occult Blood (Negative) 05/16/17 05/16/17 05/16/17 Range/Units 14:55 14:55 16:50 WBC (3.8-10.6) k/uL RBC (3.80-5.40) m/uL Hgb (11.4-16.0) gm/dL Hct (34.0-46.0) % MCV (80.0-100.0) fL MCH (25.0-35.0) pg MCHC (31.0-37.0) g/dL RDW (11.5-15.5) % Plt Count (150-450) k/uL Neutrophils % % Lymphocytes % % Monocytes % % Eosinophils % % Basophils % % Neutrophils # (1.3-7.7) k/uL Lymphocytes # (1.0-4.8) k/uL Monocytes # (0-1.0) k/uL Eosinophils # (0-0.7) k/uL Basophils # (0-0.2) k/uL Hypochromasia Anisocytosis Microcytosis PT 9.8 (9.0-12.0) sec INR 1.0 (<1.2) APTT 22.6 (22.0-30.0) sec Sodium (137-145) mmol/L Potassium (3.5-5.1) mmol/L Chloride (98-107) mmol/L Carbon Dioxide (22-30) mmol/L Anion Gap mmol/L BUN (7-17) mg/dL Creatinine (0.52-1.04) mg/dL Est GFR (CKD-EPI)AfAm (>60 ml/min/1.73 sqM) Est GFR (CKD-EPI)NonAf (>60 ml/min/1.73 sqM) Glucose (74-99) mg/dL Plasma Lactic Acid Emanuel (0.7-2.0) mmol/L Calcium (8.4-10.2) mg/dL Total Bilirubin (0.2-1.3) mg/dL AST (14-36) U/L ALT (9-52) U/L Alkaline Phosphatase (38-126) U/L Troponin I <0.012 (0.000-0.034) ng/mL Total Protein (6.3-8.2) g/dL Albumin (3.5-5.0) g/dL Amylase (30-110) U/L Lipase (23-300) U/L Urine Color Light Yellow Urine Appearance Clear (Clear) Urine pH 6.5 (5.0-8.0) Ur Specific [place] 1.003 (1.001-1.035) Urine Protein Negative (Negative) Urine Glucose (UA) Negative (Negative) Urine Ketones Negative (Negative) Urine Blood Negative (Negative) Urine Nitrite Negative (Negative) Urine Bilirubin Negative (Negative) Urine Urobilinogen <2.0 (<2.0) mg/dL Ur Leukocyte Esterase Small H (Negative) Urine RBC <1 (0-5) /hpf Urine WBC 9 H (0-5) /hpf Urine Bacteria Rare H (None) /hpf Stool Occult Blood (Negative) 05/16/17 Range/Units 17:45 WBC (3.8-10.6) k/uL RBC (3.80-5.40) m/uL Hgb (11.4-16.0) gm/dL Hct (34.0-46.0) % MCV (80.0-100.0) fL MCH (25.0-35.0) pg MCHC (31.0-37.0) g/dL RDW (11.5-15.5) % Plt Count (150-450) k/uL Neutrophils % % Lymphocytes % % Monocytes % % Eosinophils % % Basophils % % Neutrophils # (1.3-7.7) k/uL Lymphocytes # (1.0-4.8) k/uL Monocytes # (0-1.0) k/uL Eosinophils # (0-0.7) k/uL Basophils # (0-0.2) k/uL Hypochromasia Anisocytosis Microcytosis PT (9.0-12.0) sec INR (<1.2) APTT (22.0-30.0) sec Sodium (137-145) mmol/L Potassium (3.5-5.1) mmol/L Chloride (98-107) mmol/L Carbon Dioxide (22-30) mmol/L Anion Gap mmol/L BUN (7-17) mg/dL Creatinine (0.52-1.04) mg/dL Est GFR (CKD-EPI)AfAm (>60 ml/min/1.73 sqM) Est GFR (CKD-EPI)NonAf (>60 ml/min/1.73 sqM) Glucose (74-99) mg/dL Plasma Lactic Acid Emanuel (0.7-2.0) mmol/L Calcium (8.4-10.2) mg/dL Total Bilirubin (0.2-1.3) mg/dL AST (14-36) U/L ALT (9-52) U/L Alkaline Phosphatase (38-126) U/L Troponin I (0.000-0.034) ng/mL Total Protein (6.3-8.2) g/dL Albumin (3.5-5.0) g/dL Amylase (30-110) U/L Lipase (23-300) U/L Urine Color Urine Appearance (Clear) Urine pH (5.0-8.0) Ur Specific [place] (1.001-1.035) Urine Protein (Negative) Urine Glucose (UA) (Negative) Urine Ketones (Negative) Urine Blood (Negative) Urine Nitrite (Negative) Urine Bilirubin (Negative) Urine Urobilinogen (<2.0) mg/dL Ur Leukocyte Esterase (Negative) Urine RBC (0-5) /hpf Urine WBC (0-5) /hpf Urine Bacteria (None) /hpf Stool Occult Blood Negative (Negative) 05/17/17 08:25 EKG shows normal sinus rhythm, normal EKG noted. It was performed on May 16 at 1455. Ventricular rate of 77 bpm. HI interval 174 ms. QRS duration 94 ms. QT QTc is 386/436 ms. No evidence of ST elevation or T-wave inversion. No evidence of atrial ventricular arrhythmias. Disposition Clinical Impression: RLQ abdominal pain, Lymphadenopathy, abdominal Disposition: HOME SELF-CARE Condition: Good Instructions: Abdominal Pain (ED) Additional Instructions: Patient should follow-up with primary care physician within the next 1-2 days. Computed tomography scan report shows evidence of some lymph nodes in the right lower quadrant. Recommended colonoscopy and other studies for further evaluation. Return to emergency department if any alarming signs or symptoms occur. Referrals: Cele Winn MD [Primary Care Provider] - 1-2 days
== END 2017-05-16 18:50 | disposition home or self-care (01) ==
LOC: EC 14:37
DX: R59.0 Localized enlarged lymph nodes (principal); R10.31 Right lower quadrant pain; R82.71 Bacteriuria; R10.11 Right upper quadrant pain; E78.5 Hyperlipidemia, unspecified; I10 Essential (primary) hypertension; I25.10 Atherosclerotic heart disease of native coronary artery without angina pectoris; J44.9 Chronic obstructive pulmonary disease, unspecified; M19.90 Unspecified osteoarthritis, unspecified site; M10.9 Gout, unspecified; I25.2 Old myocardial infarction; Z87.891 Personal history of nicotine dependence; Z79.82 Long term (current) use of aspirin; Z79.899 Other long term (current) drug therapy; Z88.5 Allergy status to narcotic agent; Z85.828 Personal history of other malignant neoplasm of skin; Z90.49 Acquired absence of other specified parts of digestive tract; Z98.890 Other specified postprocedural states
CPT/HCPCS: 36415; 93005; 80053; 82150; 83605; 83690; 84484; 85025; 85610; 85730; 82272; 81001; 87040; 71046; 74177; 99285; Q9967

== ENCOUNTER 2017-06-08 06:50 | Day surgery (SDC) | payer MEDICARE, OTHER ==
[2017-06-03 14:47] VITALS: BMI 28.1
[~2017-06-08 06:50] MED LIST: LACTATED RINGERS 1,000 ML IV SCH
[2017-06-08 07:33] VITALS: RESP 16; TEMP 98.6
[2017-06-08] MEDS ORDERED: LIDOCAINE 1% 20 ML VIAL (10MG/ML) FOR IV START INTRADERMA ONE (07:39)
[2017-06-08] MEDS ORDERED: LIDOCAINE 1% INJ 10MG/ML (20 ML MDV) ONE (08:29)
[2017-06-08] MEDS ORDERED: PROPOFOL 10 MG/ML 20 ML VIAL IV ONE (08:29)
--- NOTE | 2017-06-08 08:58 | P.PCN ---
Date of Procedure: 06/08/17 Procedure(s) Performed: BRIEF HISTORY: Patient is a 82-year-old pleasant white female scheduled for an elective colonoscopy as a part of screening for colorectal neoplasia. PROCEDURE PERFORMED: Colonoscopy biopsy and tattooing with Janet ink. PREOPERATIVE DIAGNOSIS: Screening for colon cancer. IV sedation per Anesthesia. PROCEDURE: After informed consent was obtained, the patient, was brought into the endoscopy unit. IV sedation was administered by Anesthesia under continuous monitoring. Digital rectal examination was normal. Initially the Olympus CF- 160 flexible video colonoscope was then inserted in the rectum, gradually advanced into the right colon where there was an ulcerated mass identified and the scope could not be advanced through this area. It appears that the mass was involving the cecum/distal ascending colon. Multiple biopsies were done from this mass. Tattooing was performed with Janet ink as I was not certain of the exact site of the mass.the rest of the ascending colon, transverse colon, descending colon, sigmoid colon, and rectum appeared normal. Scattered sigmoid diverticula seen. Retroflexion was performed in the rectum and no lesions were seen. The patient tolerated the procedure well. 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 Serous was multiple biopsies and tattooing with Janet ink. Scattered sigmoid diverticulosis RECOMMENDATIONS: Findings of this examination were discussed with the patient as well as her family. At this time will await the biopsy results. She will be scheduled for CT of the abdomen and pelvis and she'll be seen in the office early next week.
[2017-06-08 09:35] VITALS: BP 112/67; PULSE 71
== END 2017-06-08 09:48 | disposition home or self-care (01) ==
LOC: ORWHC2ENDO 06:50
PROVIDERS: ATTEND Internal Medicine Gastroenterology
DX: Z12.11 Encounter for screening for malignant neoplasm of colon (principal); C18.0 Malignant neoplasm of cecum; K57.30 Diverticulosis of large intestine without perforation or abscess without bleeding; I25.10 Atherosclerotic heart disease of native coronary artery without angina pectoris; I10 Essential (primary) hypertension; E78.5 Hyperlipidemia, unspecified; J44.9 Chronic obstructive pulmonary disease, unspecified; M19.90 Unspecified osteoarthritis, unspecified site; K21.9 Gastro-esophageal reflux disease without esophagitis; I25.2 Old myocardial infarction; Z79.899 Other long term (current) drug therapy; Z79.82 Long term (current) use of aspirin; Z88.5 Allergy status to narcotic agent
CPT/HCPCS: 88305; 45380; 45381; J2001; J2704; 44404